=== PATIENT | male | born 1980 | race Caucasian/White ===

== ENCOUNTER 2016-09-20 20:13 | Emergency (ER) | payer MEDICARE ==
[2016-09-20 20:18] VITALS: BP 174/87
--- NOTE | 2016-09-20 21:22 | ED ---
Lower Extremity - HPI Summary HPI Summary: 35M presents with left ankle infection. He is DM1 with sugars between 150-350. He has had the infection for 3 days and was placed on Augmentin and said that the infection has spread. He states he had an abrasion on his left ankle and got infected. He denies any fevers. He has neuropathy in his foot. He denies any drainage from the area. He denies any loss of range of motion of ankle. - History of Current Complaint Chief Complaint: EDExtremityLower Stated Complaint: WORSENING INFECTION Time Seen by Provider: 09/20/16 20:58 Pain Intensity: 6 - Allergies/Home Medications Allergies/Adverse Reactions: Allergies Allergy/AdvReac Type Severity Reaction Status Date / Time Metoclopramide [From Reglan] Allergy Unknown Dystonic Verified 09/20/16 20:23 Prochlorperazine AdvReac Severe Dystonic; Verified 09/20/16 20:23 [From Compazine] Lock Jaw PMH/Surg Hx/FS Hx/Imm Hx Endocrine/Hematology History: Reports: Hx Diabetes, Other Endocrine/ Hematological Disorders - scleroderma Denies: Hx Anticoagulant Therapy, Hx Thyroid Disease Cardiovascular History: Denies: Hx Congestive Heart Failure, Hx Hypertension, Hx Pacemaker/ICD, Other Cardiovascular Problems/Disorders Respiratory History: Denies: Hx Asthma, Hx Chronic Obstructive Pulmonary Disease (COPD) GI History: Reports: Hx Gastroesophageal Reflux Disease, Other GI Disorders - Multiple bouts with gastroparesis Denies: Hx Ulcer History: Reports: Hx Kidney Stones, Other Problems/Disorders - RENAL STONES Denies: Hx Renal Disease Musculoskeletal History: Reports: Hx Arthritis - JRA, Hx Rheumatoid Arthritis, Hx Orthopedic Injury - right femur, right elbow, left clavicle fx's, Other Musculoskeletal History - Left Foot Osteomyletis Sensory History: Reports: Hx Eye Injury - MACULAR ISCHEMIA, MACULAR EDEMA, PROLIFERATIVE RETINOPATHY, Hx Macular Degeneration Denies: Hx Cataracts, Hx Contacts or Glasses, Hx Glaucoma, Hx Legally Blind, Hx Vision Problem, Hx Deafness, Hx Hearing Aid, Hx Hearing Problem, Other Sensory Impairments Opthamlomology History: Reports: Hx Eye Injury - MACULAR ISCHEMIA, MACULAR EDEMA , PROLIFERATIVE RETINOPATHY, Hx Macular Degeneration Denies: Hx Cataracts, Hx Contacts or Glasses, Hx Glaucoma, Hx Legally Blind, Hx Vision Problem, Other Sensory Impairments Neurological History: Reports: Other Neuro Impairments/Disorders - Neuropathy, and dystonia Denies: Hx Dementia, Hx Seizures Psychiatric History: Reports: Hx Anxiety, Hx Post Traumatic Stress Disorder Denies: Hx Panic Disorder, Hx Substance Abuse - Cancer History Cancer Type, 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 2013 r leg reaming,LASER EYE SURGERIES Hx Anesthesia Reactions: No - Immunization History Date of Tetanus Vaccine: unk Date of Influenza Vaccine: utd Infectious Disease History: No Infectious Disease History: Denies: Hx Clostridium Difficile, Hx Hepatitis, Hx Human Immunodeficiency Virus (HIV), Hx Shingles, Hx Tuberculosis, Traveled Outside the [place] in Last 30 Days - Family History Known Family History: Positive: Hypertension - Social History Alcohol Use: None Hx Substance Use: No Substance Use Type: Reports: None, Marijuana Substance Use Comment - Amount & Last Used: occasionally Hx Tobacco Use: No Smoking Status (MU): Never Smoked Tobacco Review of Systems Negative: Fever Negative: Chest Pain Negative: Shortness Of Breath Negative: Decreased ROM Positive: Rash - left ankle All Other Systems Reviewed And Are Negative: Yes Physical Exam Triage Information Reviewed: Yes Vital Signs On Initial Exam: Initial Vitals Temp Pulse Resp BP Pulse Ox 97.2 F 105 16 174/87 99 09/20/16 20:15 09/20/16 20:15 09/20/16 20:15 09/20/16 20:15 09/20/16 20:15 Vital Signs Reviewed: Yes Appearance: Positive: Well-Appearing Skin: Positive: Other - 8cm by 6cm cellulitis present near medial malleolous of left foot that is warm to touch Head/Face: Positive: Normal Head/Face Inspection Eyes: Positive: Normal, Conjunctiva Clear Respiratory/Lung Sounds: Positive: Clear to Auscultation, Breath Sounds Present Cardiovascular: Positive: Normal, RRR Musculoskeletal: Positive: Strength/ROM Intact - of left foot, Other - good pulses, decreased sensation present in left foot at baseline - Kye Coma Scale Coma Scale Total: 15 Diagnostics - Vital Signs Vital Signs Temp Pulse Resp BP Pulse Ox 09/20/16 20:15 97.2 F 105 16 174/87 99 - Laboratory Result Diagrams: 09/20/16 21:18 09/20/16 21:18 Lab Statement: Any lab studies that have been ordered have been reviewed, and results considered in the medical decision making process. - Radiology foot Xray Interpretation: No Acute Changes - IMPRESSION: No fractures identified. Postoperative changes head of the metatarsal. Radiology Interpretation Completed By: Radiologist Lower Extremity Course/Dx - Course Course Of Treatment: 35M presents with worsening cellulitis of left ankle for 3 days. started as abrasion that got infected. was placed on augmentin but infection continued to spread. denies any fever. normal wbc but lactic 2.7 so gave fluid as likely dehydrated due to low Na and Cl. is not currently in DKA but blood sugar 350 told need to use sliding scale. infection appears superficial as has full ROM of ankle and xray normal. spoke with dr cyr and will give dose of zosyn here and d/c with bactrim to add to augmentin told to follow up with primary and may need to see wound clinic. patient understands and agrees with plan - Diagnoses Differential Diagnosis/HQI/PQRI: Positive: Cellulitis, Infection - joint, Osteomyelitis Provider Diagnoses: Cellulitis of left ankle Discharge - Discharge Plan Condition: Guarded Disposition: HOME Prescriptions: Sulfamethox/Trimethoprim DS* [Bactrim DS 800/160 TAB*] 1 tab PO BID #20 tab Patient Education Materials: Cellulitis (ED) Referrals: Wolf John MD [Primary Care Provider] - Additional Instructions: Continue augmentin and add on bactrim twice a day for 10 days Follow up with primary on Friday Use sliding scale for blood sugars Return to ED if BS>500, fever, or any new or worsening symptoms
[2016-09-20 21:26] LABS: Hematocrit 41 % (42-52); Hemoglobin 13.4 g/dl (14.0-18.0); Mean Corpuscular HGB Conc 33 g/dl (31-36); Mean Corpuscular Hemoglobin 26 pg (27-31); Mean Corpuscular Volume 80 fL (80-94); Mean Platelet Volume 8 um3 (7.4-10.4); Red Blood Count 5.16 10^6/ul (4.0-5.4); Red Cell Distribution Width 13 % (10.5-15); White Blood Count 5.6 10^3/ul (3.5-10.8)
[2016-09-20 21:41] LABS: Calcium 9.3 mg/dL (8.6-10.3); EGFR African American 152.4 (>60); EGFR Non-African American 118.5 (>60); Globulin 2.9 g/dL (2-4); Potassium 3.7 mmol/L (3.5-5.0); Total Bilirubin 0.4 mg/dL (0.2-1.0); Total Protein 6.9 g/dL (6.4-8.9)
[2016-09-20] MEDS ORDERED: NS 0.9% 1000 ML* 2,000 ML IV ONE (21:55)
[2016-09-20] MEDS ORDERED: Piperac/Tazob 3.375 gm in NS* 3.375 GM/100 ML BAG IVPB ONE (22:01)
--- NOTE | 2016-09-20 22:10 | RAD ---
Indication: Foot infection. 3 views of the left foot demonstrates destruction of the head of the fifth metatarsal. No definite fractures identified. When compared to previous exam of October 08, 2011 there has been remodeling noted. IMPRESSION: No fractures identified. Postoperative changes head of the metatarsal.
== END 2016-09-20 23:47 | disposition home or self-care (01) ==
LOC: ED 20:13
DX: L03.116 Cellulitis of left lower limb (principal); R21 Rash and other nonspecific skin eruption
CPT/HCPCS: 36415; 80053; 83605; 85025; 86703; 96360; 99282; J2543

== ENCOUNTER 2017-06-17 17:29 | Emergency (ER) | payer MEDICARE ==
[2017-06-17] MEDS ORDERED: NS 0.9% 1000 ML* 1,000 ML IV ONE (20:06)
[2017-06-17] MEDS ORDERED: Ketorolac INJ* 30 MG/ML 1 ML VIAL IV PUSH ONE (20:08)
[2017-06-17 20:13] LABS: Urine Appearance Cloudy; Urine Blood 3+ (Negative); Urine Color Yellow; Urine Ketones 1+ (Negative); Urine Protein 2+(100 mg/dL) (Negative); Urine Specific Gravity 1.031 (1.010-1.030); Urine Urobilinogen Negative (Negative)
--- NOTE | 2017-06-17 20:34 | RAD ---
INDICATION: Gross hematuria. COMPARISON: January 07, 2014 CT. TECHNIQUE: Multidetector CT images were obtained from the lung bases to the ischial tuberosities. Evaluation of the viscera is limited without IV contrast. Multiplanar reformation. REPORT: Unremarkable visualized inferior thorax. The unenhanced liver, gallbladder, pancreas, and spleen are unremarkable. Negative for CT abnormality of the upper GI or small bowel. Variant prominent retrocecal appendix without suggestion of acute inflammatory change. Negative for ascites, free air, hernias. Normal adrenal glands. Severe RIGHT hydroureteronephrosis is traced to a 0.9 cm maximum dimension proximal ureteral stone. 0.8 cm RIGHT lower pole calyceal stone. 0.7 cm LEFT upper pole calyceal stone. Negative for LEFT hydronephrosis. Unremarkable partially distended urinary bladder. Negative for lymphadenopathy. Normal diameter abdominal aorta and iliac arteries. Physiologic distention of the IVC. LEFT femur IM earl partially visualized. Variant RIGHT hemisacralization of L5. Negative for suspicious focal osseous lesions. IMPRESSION: Severe RIGHT hydroureteronephrosis is traced to a 0.9 cm maximum dimension proximal ureteral stone. Additional similar nonobstructing bilateral renal stones.
[2017-06-17 20:46] LABS: ABS Basophils 0.1 10^3/ul (0-0.2); ABS Eosinophils 0.1 10^3/ul (0-0.6); ABS Lymphocytes 1.7 10^3/ul (1.0-4.8); ABS Monocytes 0.4 10^3/ul (0-0.8); ABS Neutrophils 4.2 10^3/ul (1.5-7.7); ABS Nucleated RBC 0 10^3/ul; Hematocrit 43 % (42-52); Hemoglobin 14.1 g/dl (14.0-18.0); Lymphocyte % 26.5 % (25-47); Mean Corpuscular HGB Conc 33 g/dl (31-36); Mean Corpuscular Hemoglobin 26 pg (27-31); Mean Corpuscular Volume 79 fL (80-94); Mean Platelet Volume 9 um3 (7.4-10.4); Nucleated Red Blood Cells % 0; Platelet Count 277 10^3/ul (150-450); Red Blood Count 5.38 10^6/ul (4.0-5.4); Red Cell Distribution Width 13 % (10.5-15); White Blood Count 6.5 10^3/ul (3.5-10.8)
[2017-06-17] MEDS ORDERED: Ketorolac INJ* 60 MG/2 ML VIAL ONE (20:49)
[2017-06-17] MEDS ORDERED: Ketorolac INJ* 60 MG/2 ML VIAL IV PUSH ONE ×2 (20:53)
[2017-06-17 21:00] LABS: EGFR Non-African American 90.8 (>60)
[2017-06-17 21:04] LABS: INR 0.83 (0.77-1.02)
[2017-06-17] MEDS ORDERED: Levofloxacin TAB* 500 MG PO ONE (21:11)
--- NOTE | 2017-06-17 21:26 | ED ---
Clay Maldonado Gabriel, scribzoe for Rodolfo Miguel MD on 06/17/17 at 2007 . GI/ HPI - HPI Summary HPI Summary: This patient is a 36 year old M presenting to [facility] with a chief complaint of hematuria since 06/08/17. The patient rates the pain 8/10 in severity. Patient reports flank back (1 day) and epigastrium pain. - History of Current Complaint Chief Complaint: EDUrogenitalProblems Time Seen by Provider: 06/17/17 19:48 Stated Complaint: URINATING BLOOD Hx Obtained From: Patient Onset/Duration: Started Weeks Ago, Still Present Timing: Constant, Intermittent Severity: Mild Current Severity: Moderate Pain Intensity: 8 Location of Pain: Epigastric Associated Signs and Symptoms: Positive: Hematuria, Other: - flank and epigastric pain - Additional Pertinent History Primary Care Physician: [id number] - Allergy/Home Medications Allergies/Adverse Reactions: Allergies Allergy/AdvReac Type Severity Reaction Status Date / Time Metoclopramide [From Reglan] Allergy Unknown Dystonic Verified 09/20/16 20:23 Prochlorperazine AdvReac Severe Dystonic; Verified 09/20/16 20:23 [From Compazine] Lock Jaw PMH/Surg Hx/FS Hx/Imm Hx Endocrine/Hematology History: Reports: Hx Diabetes, Other Endocrine/ Hematological Disorders - scleroderma Denies: Hx Anticoagulant Therapy, Hx Thyroid Disease Cardiovascular History: Denies: Hx Congestive Heart Failure, Hx Hypertension, Hx Pacemaker/ICD, Other Cardiovascular Problems/Disorders Respiratory History: Denies: Hx Asthma, Hx Chronic Obstructive Pulmonary Disease (COPD) GI History: Reports: Hx Gastroesophageal Reflux Disease, Other GI Disorders - Multiple bouts with gastroparesis Denies: Hx Ulcer History: Reports: Hx Kidney Stones, Other Problems/Disorders - RENAL STONES Denies: Hx Renal Disease Musculoskeletal History: Reports: Hx Arthritis - JRA, Hx Rheumatoid Arthritis, Hx Orthopedic Injury - right femur, right elbow, left clavicle fx's, Other Musculoskeletal History - Left Foot Osteomyletis Sensory History: Reports: Hx Eye Injury - MACULAR ISCHEMIA, MACULAR EDEMA, PROLIFERATIVE RETINOPATHY, Hx Macular Degeneration Denies: Hx Cataracts, Hx Contacts or Glasses, Hx Glaucoma, Hx Legally Blind, Hx Vision Problem, Hx Deafness, Hx Hearing Aid, Hx Hearing Problem, Other Sensory Impairments Opthamlomology History: Reports: Hx Eye Injury - MACULAR ISCHEMIA, MACULAR EDEMA , PROLIFERATIVE RETINOPATHY, Hx Macular Degeneration Denies: Hx Cataracts, Hx Contacts or Glasses, Hx Glaucoma, Hx Legally Blind, Hx Vision Problem, Other Sensory Impairments Neurological History: Reports: Other Neuro Impairments/Disorders - Neuropathy, and dystonia Denies: Hx Dementia, Hx Seizures Psychiatric History: Reports: Hx Anxiety, Hx Post Traumatic Stress Disorder Denies: Hx Panic Disorder, Hx Substance Abuse - Cancer History Cancer Type, 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 2013 r leg reaming,LASER EYE SURGERIES Hx Anesthesia Reactions: No - Immunization History Date of Tetanus Vaccine: unk Date of Influenza Vaccine: utd Infectious Disease History: No Infectious Disease History: Denies: Hx Clostridium Difficile, Hx Hepatitis, Hx Human Immunodeficiency Virus (HIV), Hx Shingles, Hx Tuberculosis, Traveled Outside the [place] in Last 30 Days - Family History Known Family History: Positive: Hypertension, Diabetes - Social History Alcohol Use: None Hx Substance Use: No Substance Use Type: Reports: Marijuana Substance Use Comment - Amount & Last Used: occasionally Hx Tobacco Use: No Smoking Status (MU): Never Smoked Tobacco Review of Systems Positive: Abdominal Pain Positive: hematuria Positive: Other - flank pain All Other Systems Reviewed And Are Negative: Yes Physical Exam - Summary Physical Exam Summary: VITAL SIGNS: Reviewed. GENERAL: Patient is a well-developed and nourished male who is lying comfortable in the stretcher. Patient is not in any acute respiratory distress. HEAD AND FACE: No signs of trauma. No ecchymosis, hematomas or skull depressions. No sinus tenderness. EYES: PERRLA, EOMI x 2, No injected conjunctiva, no nystagmus. EARS: Hearing grossly intact. Ear canals and tympanic membranes are within normal limits. MOUTH: Oropharynx within normal limits. NECK: Supple, trachea is midline, no adenopathy, no JVD, no carotid bruit, no c- spine tenderness, neck with full ROM. CHEST: Symmetric, no tenderness at palpation LUNGS: Clear to auscultation bilaterally. No wheezing or crackles. CVS: Regular rate and rhythm, S1 and S2 present, no murmurs or gallops appreciated. ABDOMEN: Soft, non-tender. No signs of distention. No rebound no guarding, and no masses palpated. Bowel sounds are normal. EXTREMITIES: FROM in all major joints, no edema, no cyanosis or clubbing. NEURO: Alert and oriented x 3. No acute neurological deficits. Speech is normal and follows commands. SKIN: Dry and warm Triage Information Reviewed: Yes Vital Signs On Initial Exam: Initial Vitals Temp Pulse Resp BP Pulse Ox 98.4 F 124 20 163/88 97 06/17/17 17:31 06/17/17 17:31 06/17/17 17:31 06/17/17 17:31 06/17/17 17:31 Vital Signs Reviewed: Yes - [place] Coma Scale Coma Scale Total: 15 Diagnostics - Vital Signs Vital Signs Temp Pulse Resp BP Pulse Ox 06/17/17 17:31 98.4 F 124 20 163/88 97 - Laboratory Lab Results: Lab Results 06/17/17 06/17/17 06/17/17 Range/Units 19:55 20:30 20:30 WBC (3.5-10.8) 10^3/ul RBC (4.0-5.4) 10^6/ul Hgb (14.0-18.0) g/dl Hct (42-52) % MCV (80-94) fL MCH (27-31) pg MCHC (31-36) g/dl RDW (10.5-15) % Plt Count (150-450) 10^3/ul MPV (7.4-10.4) um3 Neut % (Auto) (38-83) % Lymph % (Auto) (25-47) % Towns % (Auto) (1-9) % Eos % (Auto) (0-6) % Baso % (Auto) (0-2) % Absolute Neuts (auto) (1.5-7.7) 10^3/ul Absolute Lymphs (auto) (1.0-4.8) 10^3/ul Absolute Monos (auto) (0-0.8) 10^3/ul Absolute Eos (auto) (0-0.6) 10^3/ul Absolute Basos (auto) (0-0.2) 10^3/ul Absolute Nucleated RBC 10^3/ul Nucleated RBC % INR (Anticoag Therapy) 0.83 (0.77-1.02) APTT 28.4 (26.0-36.3) seconds Sodium 131 L (133-145) mmol/L Potassium 4.2 (3.5-5.0) mmol/L Chloride 96 L (101-111) mmol/L Carbon Dioxide 27 (22-32) mmol/L Anion Gap 8 (2-11) mmol/L BUN 17 (6-24) mg/dL Creatinine 0.94 (0.67-1.17) mg/dL Est GFR ( Amer) 116.8 (>60) Est GFR (Non-Af Amer) 90.8 (>60) BUN/Creatinine Ratio 18.1 (8-20) Glucose 379 H (70-100) mg/dL Calcium 9.1 (8.6-10.3) mg/dL Total Bilirubin 0.70 (0.2-1.0) mg/dL AST 16 (13-39) U/L ALT 18 (7-52) U/L Alkaline Phosphatase 109 H (34-104) U/L C-Reactive Protein 6.78 H (< 5.00) mg/L Total Protein 7.1 (6.4-8.9) g/dL Albumin 4.1 (3.2-5.2) g/dL Globulin 3.0 (2-4) g/dL Albumin/Globulin Ratio 1.4 (1-3) Urine Color Yellow Urine Appearance Cloudy Urine pH 6.0 (5-9) Ur Specific [place] 1.031 H (1.010-1.030) Urine Protein 2+(100 mg/dl) H (Negative) Urine Ketones 1+ H (Negative) Urine Blood 3+ H (Negative) Urine Nitrate Negative (Negative) Urine Bilirubin Negative (Negative) Urine Urobilinogen Negative (Negative) Ur Leukocyte Esterase Negative (Negative) Urine WBC (Auto) 3+(>20/hpf) H (Absent) Urine RBC (Auto) 3+(>10/hpf) H (Absent) Urine Bacteria Absent (Absent) Urine Glucose 3+(>=500 mg/dl) H (Negative) 06/17/17 Range/Units 20:30 WBC 6.5 (3.5-10.8) 10^3/ul RBC 5.38 (4.0-5.4) 10^6/ul Hgb 14.1 (14.0-18.0) g/dl Hct 43 (42-52) % MCV 79 L (80-94) fL MCH 26 L (27-31) pg MCHC 33 (31-36) g/dl RDW 13 (10.5-15) % Plt Count 277 (150-450) 10^3/ul MPV 9 (7.4-10.4) um3 Neut % (Auto) 64.6 (38-83) % Lymph % (Auto) 26.5 (25-47) % Towns % (Auto) 5.8 (1-9) % Eos % (Auto) 2.0 (0-6) % Baso % (Auto) 1.1 (0-2) % Absolute Neuts (auto) 4.2 (1.5-7.7) 10^3/ul Absolute Lymphs (auto) 1.7 (1.0-4.8) 10^3/ul Absolute Monos (auto) 0.4 (0-0.8) 10^3/ul Absolute Eos (auto) 0.1 (0-0.6) 10^3/ul Absolute Basos (auto) 0.1 (0-0.2) 10^3/ul Absolute Nucleated RBC 0 10^3/ul Nucleated RBC % 0 INR (Anticoag Therapy) (0.77-1.02) APTT (26.0-36.3) seconds Sodium (133-145) mmol/L Potassium (3.5-5.0) mmol/L Chloride (101-111) mmol/L Carbon Dioxide (22-32) mmol/L Anion Gap (2-11) mmol/L BUN (6-24) mg/dL Creatinine (0.67-1.17) mg/dL Est GFR ( Amer) (>60) Est GFR (Non-Af Amer) (>60) BUN/Creatinine Ratio (8-20) Glucose (70-100) mg/dL Calcium (8.6-10.3) mg/dL Total Bilirubin (0.2-1.0) mg/dL AST (13-39) U/L ALT (7-52) U/L Alkaline Phosphatase (34-104) U/L C-Reactive Protein (< 5.00) mg/L Total Protein (6.4-8.9) g/dL Albumin (3.2-5.2) g/dL Globulin (2-4) g/dL Albumin/Globulin Ratio (1-3) Urine Color Urine Appearance Urine pH (5-9) Ur Specific [place] (1.010-1.030) Urine Protein (Negative) Urine Ketones (Negative) Urine Blood (Negative) Urine Nitrate (Negative) Urine Bilirubin (Negative) Urine Urobilinogen (Negative) Ur Leukocyte Esterase (Negative) Urine WBC (Auto) (Absent) Urine RBC (Auto) (Absent) Urine Bacteria (Absent) Urine Glucose (Negative) Result Diagrams: 06/17/17 20:30 06/17/17 20:30 Lab Statement: Any lab studies that have been ordered have been reviewed, and results considered in the medical decision making process. - CT CT ABD/Pelvis CT Interpretation Completed By: Radiologist - Severe RIGHT hydroureteronephrosis is traced to a 0.9 cm maximum dimension proximal ureteral stone. Additional similar nonobstructing bilateral renal stones ED physician has reviewed this radiology report. Re-Evaluation - Re-Evaluation First Eval Re-Evaluation Time: 21:24 Change: Unchanged - Patients blood sugar is high he is IDDM He usually uses sliding scale and he states he will take care of it when he gets home. GIGU Course/Dx - Course Assessment/Plan: This patient is a 36 year old M presenting to [facility] with a chief complaint of hematuria since 06/08/17. The patient rates the pain 8/10 in severity. Patient reports flank back (1 day) and epigastric pain. . ABD/ Pelvis CT, reveals, per radiloigst, Severe RIGHT hydroureteronephrosis is traced to a 0.9 cm maximum dimension. proximal ureteral stone. Additional similar nonobstructing bilateral renal stones. . Test results with no significant abnormalities. In the ED course the patient was given Toradol, IV fluids, and Levaquin. Patient will be discharged with prescription for Levaquin , Percocet, and tamsulosin and follow up from urology tomorrow. The patient is agreeable with this plan. - Diagnoses Provider Diagnoses: Ureteral calculus, right Discharge - Discharge Plan Condition: Stable Disposition: HOME Prescriptions: Levofloxacin TAB* [Levaquin TAB*] 500 mg PO DAILY #7 tab oxyCODONE/Acetamin 5/325 MG* [Percocet 5/325 TAB*] 1 tab PO Q6H PRN #14 tab MDD 4 PRN Reason: Pain Tamsulosin CAP* [Flomax CAP*] 0.4 mg PO DAILY #7 cap Patient Education Materials: Kidney Stones (ED) Referrals: Wolf John MD [Primary Care Provider] - Gianluca Coffey MD [Medical Doctor] - 1 Day Additional Instructions: Follow up with Dr. Coffey tomorrow. RETURN TO EMERGENCY DEPARTMENT FOR ANY NEW OR WORSENING SYMPTOMS The documentation as recorded by the Clay roblero Gabriel accurately reflects the service I personally performed and the decisions made by , Rodolfo Miguel MD.
[2017-06-17 21:42] VITALS: BP 134/90
== END 2017-06-17 21:41 | disposition home or self-care (01) ==
LOC: ED 17:29
DX: N20.1 Calculus of ureter (principal); R31.9 Hematuria, unspecified; R10.84 Generalized abdominal pain
CPT/HCPCS: 36415; 74176; 80053; 81003; 81015; 85025; 85610; 85730; 86140; 96374; 96375; 99283; J1885

== ENCOUNTER 2017-06-20 06:58 | Day surgery (SDC) | payer MEDICARE ==
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
[~2017-06-20 06:58] MED LIST: Buffered Lidocaine 0.9% SYRIN* 5 ML/SYR SYRINGE INTRADERM ONE; Famotidine IV* 10 MG/ML 2 ML (20 mg) IV ONE
[2017-06-20] MEDS ORDERED: Gentamicin ADULT (*) 160 MG in NS 0.9% 100 ML* 100 ML IVPB ONE (07:00)
[2017-06-20] MEDS ORDERED: Famotidine IV* 10 MG/ML 2 ML (20 mg) ONE (07:08)
[2017-06-20] MEDS ORDERED: Buffered Lidocaine 0.9% SYRIN* 5 ML/SYR SYRINGE ONE (07:09)
[2017-06-20] MEDS ORDERED: cefTRIAXone(*) 2 GM ADDV.VIAL IVPB ONE ×2 (07:09→07:34)
[2017-06-20] MEDS ORDERED: fentaNYL* 50 MCG/ML 2 ML VIAL (100 MCG VIAL) ONE (08:27)
[2017-06-20] MEDS ORDERED: Midazolam* 1 MG/ML 2 ML VIAL (2 MG) ONE (08:27)
[2017-06-20] MEDS ORDERED: fentaNYL* 50 MCG/ML 2 ML VIAL (100 MCG VIAL) IV PRN (08:44)
[2017-06-20] MEDS ORDERED: Ketorolac INJ* 30 MG/ML 1 ML VIAL IV PRN (08:44)
[2017-06-20] MEDS ORDERED: oxyCODONE/Acetamin 5/325 MG* TAB PO PRN (08:44)
[2017-06-20] MEDS ORDERED: Naloxone* 0.4 MG/ML 1 ML VIAL IV PRN (08:44)
[2017-06-20] MEDS ORDERED: DiMENhydriNATE IV* 50 MG/ML VIAL IV PUSH PRN (08:44)
[2017-06-20] MEDS ORDERED: HYDROcodone/ACETAMIN 5-325 MG* 1 TAB PO PRN (08:44)
[2017-06-20] MEDS ORDERED: Mivacurium Chloride* 20 MG/10 ML VIAL IV ONE (08:54)
[2017-06-20] MEDS ORDERED: Lidocaine 2% PF * 5 ML VIAL ONE (08:54)
[2017-06-20] MEDS ORDERED: Propofol* 10 MG/ML 20 ML BTL IV PUSH ONE (08:54)
[2017-06-20] MEDS ORDERED: Iohexol 180 (CONTRAST) 10 ML SDV IV ONE (08:58)
[2017-06-20] MEDS ORDERED: Dextrose 50% Syringe 50 ML* 25 GM/50 ML SYRINGE ONE (09:04)
[2017-06-20] MEDS ORDERED: Ondansetron INJ* 2 MG/ML VIAL ONE (09:16)
--- NOTE | 2017-06-20 10:20 | RAD ---
INDICATION: Ureteral stent insertion COMPARISONS: CT dated June 17, 2017 TECHNIQUE: Fluoroscopy was provided for a retrograde pyelogram and stent placement. Total fluoroscopy time is: 7 seconds FINDINGS: Spot images demonstrate contrast within the renal collecting system which appears partially duplicated. IMPRESSION: FLUOROSCOPY WAS PROVIDED FOR A RETROGRADE PYELOGRAM AND STENT PLACEMENT CPT II Codes: 6045F
[2017-06-20 10:48] VITALS: BP 118/69
--- NOTE | 2017-06-20 11:15 | RAD ---
HISTORY: Stent, status post cystoscopy COMPARISONS: June 19, 2012 VIEWS: Frontal views of the abdomen. FINDINGS: BOWEL: There is a nonobstructive bowel gas pattern. There is a large amount of stool within the colon. CALCULI: A right ureteral stent is noted. There is stable bilateral nephrolithiasis including a right midureteral calculus. BONES AND SOFT TISSUES: There are no osseous abnormalities. OTHER FINDINGS: The lung bases are clear. There is no subphrenic gas. IMPRESSION: RIGHT RENAL STENT. BILATERAL NEPHROLITHIASIS.
--- NOTE | 2017-06-21 05:38 | OP ---
DATE OF OPERATION: 06/20/17 - ROOM #[id number] DATE OF : 80 SURGEON: Cristobal Sanford MD ANESTHESIOLOGIST: Dr. Mireya Hinojosa. ANESTHESIA: General. PRE-OP DIAGNOSES: 1. Right hydronephrosis. 2. Right renal calculus. 3. Right ureteral calculus. POST-OP DIAGNOSES: 1. Right hydronephrosis. 2. Right renal calculus. 3. Right ureteral calculus. OPERATIVE PROCEDURE: 1. Cystoscopy. 2. Right retrograde pyelogram. 3. Right stent insertion. COMPLICATIONS: None. STENT USED: 7-Vietnamese stent right ureter. POSTOPERATIVE CONDITION: Stable. INDICATIONS: Jabier Dickerson is a 36-year-old diabetic with a history of renal calculi. He was evaluated for severe hydronephrosis secondary to a calculus in the right proximal ureter with additional bilateral renal calculi. He is being brought in for urgent right stent insertion to be followed by lithotripsy. DESCRIPTION OF PROCEDURE: After induction of general anesthesia, the patient was placed in dorsal lithotomy position. Sequential compression devices were in place and functioning. Initial cystoscopy revealed a mild stricture at the urethral meatus. Rest of the urethra and the bladder were unremarkable. A guidewire was introduced into the right ureter. Retrograde pyelogram revealed a dilated proximal collecting system. A 7-Vietnamese stent was introduced and positioned under fluoroscopy with good proximal and distal positioning obtained. The bladder was emptied. The patient tolerated the procedure satisfactorily and was transferred back to the recovery area in stable condition. [id number]/[facility] #: [id number] MTDD
== END 2017-06-20 10:57 | disposition home or self-care (01) ==
LOC: OR 06:58 → AA 07:10 → UNDOADMIN 07:10
PROVIDERS: ATTEND Urology
DX: N13.2 Hydronephrosis with renal and ureteral calculous obstruction (principal); E10.9 Type 1 diabetes mellitus without complications; Z79.4 Long term (current) use of insulin; M34.9 Systemic sclerosis, unspecified; K31.84 Gastroparesis
CPT/HCPCS: 74018; 74420; C1876; J0696; J1580; J2250; J2405; J2704; J3010

== ENCOUNTER 2017-06-30 12:25 | Day surgery (SDC) | payer MEDICARE ==
[2017-06-30] MEDS ORDERED: Midazolam* 1 MG/ML 2 ML VIAL (2 MG) ONE (12:37)
[2017-06-30] MEDS ORDERED: fentaNYL* 50 MCG/ML 2 ML VIAL (100 MCG VIAL) ONE (12:37)
[2017-06-30] MEDS ORDERED: Ondansetron INJ* 2 MG/ML VIAL ONE (12:56)
[2017-06-30] MEDS ORDERED: Dexamethasone IV* 4 MG/ML 1 ML (4 MG) ONE (12:56)
[2017-06-30] MEDS ORDERED: Succinylcholine* 20 MG/ML 10 ML VIAL ONE (12:56)
[2017-06-30] MEDS ORDERED: Ketorolac INJ* 30 MG/ML 1 ML VIAL ONE (12:56)
[2017-06-30] MEDS ORDERED: Propofol* 10 MG/ML 20 ML BTL IV PUSH ONE ×2 (12:56→14:39)
[2017-06-30] MEDS ORDERED: Lidocaine 2% PF * 5 ML VIAL ONE (12:56)
[2017-06-30] MEDS ORDERED: Acetaminophen TAB* 325 MG PO PRN (13:14)
[2017-06-30] MEDS ORDERED: DiMENhydriNATE IV* 50 MG/ML VIAL IV PUSH PRN (13:14)
[2017-06-30] MEDS ORDERED: Naloxone* 0.4 MG/ML 1 ML VIAL IV PRN (13:14)
[2017-06-30] MEDS ORDERED: oxyCODONE TAB* 5 MG TAB PO PRN (13:14)
--- NOTE | 2017-06-30 13:57 | RAD ---
HISTORY: Shock wave lithotripsy COMPARISONS: June 20, 2017 VIEWS: Frontal views of the abdomen. FINDINGS: BOWEL: There is a nonspecific bowel gas pattern, with nondilated small bowel gas noted. There is a large amount of stool within the colon. CALCULI: There is a right ureteral stent. Again noted is a calculus overlying the right ureter measuring 0.8 cm. There is a 0.7 cm focus of lower pole of the right kidney. These are stable. BONES AND SOFT TISSUES: The patient is status post internal fixation of the right femur. There is partial sacralization of L5 with pseudoarthrosis formation on the right OTHER FINDINGS: The lung bases are clear. There is no subphrenic gas. IMPRESSION: RIGHT NEPHROLITHIASIS WITH A RIGHT URETERAL STENT
[2017-06-30 16:15] VITALS: BP 141/93
--- NOTE | 2017-06-30 17:20 | RAD ---
INDICATION: The patient is status post lithotripsy of the right kidney COMPARISON: Same day KUB acquired at 1244 hours. TECHNIQUE: 2 views the abdomen were obtained at 1654 hours FINDINGS: Again seen is an anatomically aligned right ureteral stent. At the mid-level ureter there is an 8 mm calcification approximately at the L3/L4 intervertebral disc space unchanged from the earlier radiograph. Again seen is a medullary prosthesis with 1 fractures screw overlying the lesser trochanter. IMPRESSION: ANATOMIC ALIGNMENT OF RIGHT URETERAL STENT WITH UNCHANGED 8 MM CALCIFICATION AT THE MID-LEVEL URETER.
--- NOTE | 2017-07-01 12:17 | OP ---
CC: Dr. John * DATE OF OPERATION: 06/30/17 - SDS DATE OF : 80 SURGEON: Cristobal Sanford MD ANESTHESIOLOGIST: Dr. Gaming. ANESTHESIA: General. PRE-OP DIAGNOSES: 1. Calculus, right ureter. 2. Calculus, right kidney. POST-OP DIAGNOSES: 1. Calculus, right ureter. 2. Calculus, right kidney. OPERATIVE PROCEDURE: 1. Shockwave lithotripsy of right ureteral calculus. 2. Shockwave lithotripsy of right renal calculus. COMPLICATIONS: None. POSTOPERATIVE CONDITION: Stable. INDICATIONS: Jabier Dickerson is a 36-year-old diabetic who had undergone urgent stent insertion for an obstructing calculus in the right proximal ureter. At that time, in addition to the obstructing right ureteral calculus, he was also noted to have a right renal calculus. DESCRIPTION OF PROCEDURE: After induction of general anesthesia, the patient was placed on the lithotripsy table in supine position. The calculus in the proximal right ureter adjacent to the stent was first localized using fluoroscopy. Shockwave lithotripsy was commenced at a rate of 90 shocks per minute. Periodic imaging revealed good localization and fragmentation and a total of 2400 shocks were administered to this calculus. Next, the patient was moved to be able to visualize the calculus in the mid to lower pole of the right kidney and this was identified using fluoroscopy. Shockwave lithotripsy was commenced at a rate of 90 shocks per minute, and after the initial 300 shocks, there was a pause in lithotripsy for several minutes in an effort to minimize any potential trauma to the kidney. Lithotripsy was then resumed and a total of 2000 shocks were administered to this calculus and good fragmentation was observed. The patient tolerated the procedure satisfactorily and was transferred back to the recovery area in stable condition. [id number] #: [id number] MTDEdel
== END 2017-06-30 17:06 | disposition home or self-care (01) ==
LOC: IMG 12:25 → OR 12:25 → IMG 17:06
PROVIDERS: ATTEND Urology
DX: N20.1 Calculus of ureter (principal); N20.0 Calculus of kidney; E11.9 Type 2 diabetes mellitus without complications; Z79.4 Long term (current) use of insulin; M34.9 Systemic sclerosis, unspecified
CPT/HCPCS: 74018; J0330; J1100; J1885; J2250; J2405; J2704; J3010

== ENCOUNTER 2017-07-02 17:26 | Emergency (ER) | payer MEDICARE ==
[2017-07-02] MEDS ORDERED: Lidocaine 2% PF * 5 ML VIAL INJ ONE (21:27)
[2017-07-02] MEDS ORDERED: Lidocaine 2% PF * 5 ML VIAL ONE (21:28)
[2017-07-02] MEDS ORDERED: Clindamycin CAP* 150 MG PO ONE (22:12)
[2017-07-02] MEDS ORDERED: Levofloxacin TAB* 500 MG PO ONE (22:13)
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
[2017-07-02 22:41] VITALS: BP 134/84
== END 2017-07-02 22:41 | disposition home or self-care (01) ==
LOC: ED 17:26
DX: L02.611 Cutaneous abscess of right foot (principal)
CPT/HCPCS: 10060; 87070; 87205; 87640; 87641; 99282; A9270-GY

== ENCOUNTER 2017-07-11 16:50 | Emergency (ER) | payer MEDICARE ==
[2017-07-11 16:55] VITALS: BP 160/87
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
== END 2017-07-11 17:41 | disposition home or self-care (01) ==
LOC: ED 16:50
DX: S91.301A Unspecified open wound, right foot, initial encounter (principal); X58.XXXA Exposure to other specified factors, initial encounter; Y92.9 Unspecified place or not applicable; E10.9 Type 1 diabetes mellitus without complications; Z88.8 Allergy status to other drugs, medicaments and biological substances
CPT/HCPCS: 99282

== ENCOUNTER 2018-05-06 10:48 | Inpatient (IN) | payer MEDICARE ==
[2018-05-06] MEDS ORDERED: NS 0.9% 1000 ML* 1,000 ML IV ONE (10:53)
[2018-05-06 11:14] LABS: ABS Basophils 0.1 10^3/ul (0-0.2); ABS Eosinophils 0 10^3/ul (0-0.6); ABS Lymphocytes 0.8 10^3/ul (1.0-4.8); ABS Monocytes 0.4 10^3/ul (0-0.8); ABS Neutrophils 8.8 10^3/ul (1.5-7.7); ABS Nucleated RBC 0 10^3/ul; Eosinophil % 0.1 % (0-6); Hematocrit 46 % (42-52); Hemoglobin 14.8 g/dl (14.0-18.0); Lymphocyte % 7.7 % (25-47); Mean Corpuscular HGB Conc 32 g/dl (31-36); Mean Corpuscular Hemoglobin 26 pg (27-31); Mean Corpuscular Volume 81 fL (80-94); Mean Platelet Volume 8.9 fL (7.4-10.4); Nucleated Red Blood Cells % 0; Platelet Count 290 10^3/ul (150-450); Red Blood Count 5.62 10^6/ul (4.00-5.40); Red Cell Distribution Width 13 % (10.5-15); White Blood Count 10.1 10^3/ul (3.5-10.8)
[2018-05-06] MEDS ORDERED: Insulin IVPB 100 units/100 ml 100 UNITS/100 ML UNIT IVPB ONE (11:21)
[2018-05-06 11:27] LABS: INR 0.88 (0.77-1.02)
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
[2018-05-06 11:36] LABS: EGFR Non-African American 76.1 (>60)
[2018-05-06] MEDS: Ondansetron INJ* 2 MG/ML VIAL IV PRN ×2 (14:23→18:28)
[2018-05-06] MEDS ORDERED: D5NS 0.9% 1000 ML BAG* 1,000 ML IV SCH ×2 (15:00→15:58)
[2018-05-06 15:40] LABS: EGFR Non-African American 96.2 (>60)
[2018-05-06] MEDS: Insulin LISPRO* 1 UNITS UNIT SUBCUT SCH ×2 (16:44→20:39)
[2018-05-06 18:39] LABS: Urine Appearance Clear; Urine Blood 1+ (Negative); Urine Color Yellow; Urine Ketones 2+ (Negative); Urine Protein 2+(100 mg/dL) (Negative); Urine Red Blood Cell Trace(0-2/hpf) (Absent); Urine Specific Gravity 1.023 (1.010-1.030); Urine Urobilinogen Negative (Negative); Urine White Blood Cell Trace(0-5/hpf) (Absent)
--- NOTE | 2018-05-06 20:37 | HP ---
ADMISSION HISTORY AND PHYSICAL: DATE OF ADMISSION: 05/06/18 REASON FOR ADMISSION: Diabetic ketoacidosis. HISTORY OF PRESENT ILLNESS: This patient is a 37-year-old white male with a long- standing history of type 1 diabetes complicated by gastroparesis and neurogenic bladder. Presented to emergency room today because of nausea and vomiting, and was found to have a blood glucose of 527, a bicarb of 15, and an anion gap of 24 - was subsequently given fluids and insulin, and admitted to ICU with Dx of diabetic ketoacidosis. The patient was alert and oriented in the ED, and he denies any symptoms suggestive of an infection, DE, or pancreatitis. He did state that the nausea and vomiting are probly related to the gastroparesis, and when he has difficulty keeping food down, he cuts back his insulin dose. Associated illness: Scleroderma, apparently skin involvement only. OUTPATIENT MEDICATIONS: 1. Lantus insulin 35 units subcu daily. 2. Lispro insulin 2-10 units subQ as needed. 3. Zofran 4 mg sublingual q.4 hours as needed. ALLERGIES TO MEDICATIONS: METOCLOPRAMIDE causes dystonic reactions and PROCHLORPERAZINE, reaction unknown. SOCIAL HISTORY: The patient lives with 4 roommates in a house in [facility]. Denies smoking or alcohol abuse. REVIEW OF SYSTEMS: Noncontributory. PHYSICAL EXAMINATION GENERAL: The patient was alert, oriented and appeared comfortable. VITAL SIGNS: Temperature of 98.4 (temporal), heart rate 112, blood pressure 150 /90, respirations 22 and regular, O2 sat 98% 2 liters of oxygen via nasal cannula. HEENT: Oropharynx was not injected. NECK: Supple without masses or adenopathy. LUNGS: Clear to auscultation. HEART: Cardiac exam revealed a regular tachycardia, and there was a 2/6 early systolic murmur heard throughout the precordium. ABDOMEN: Soft, nontender, and nondistended. EXTREMITIES: Cool and pale, but not edematous. Skin changes were consistent with early scleroderma. DIAGNOSTIC STUDIES/LAB DATA: Admission laboratory data: Hemoglobin was 14.8, hematocrit 46, white count 10.1, platelets 290,000. Sodium 132, potassium 4.4, chloride 93, CO2 of 15, anion gap 24, BUN 22, creatinine 1.09. CPK normal. Troponin 0. C-reactive protein 3, albumin 4.4, alk phos 136. ALT and AST normal. Chest x-ray, clear lung dolan and no cardiomegaly. Electrocardiogram: Sinus tachycardia without acute ST or T-wave changes. IMPRESSION: Diabetic ketoacidosis due to altered insulin dosing (in response to vomiting from gastroparesis). No evidence for infection or myocardial ischemia. PLAN: Management will consist of the usual fluids and intravenous insulin infusion. We will switch to subcutaneous insulin when anion gap has normalized. Management of the gastroparesis has been problematic and we will use Zofran for nausea and vomiting for now. I will consider domperidone 10 to 20 mg 3 times daily before meals (the patient has failed erythromycin and is allergic to METOCLOPRAMIDE). Urine and blood cultures have been sent and results are pending. CRITICAL CARE TIME: 60 minutes. [id number]/[facility] #: [id number] MTDD
[2018-05-06] MEDS: Heparin VIAL(*) 5000 UNITS/ML VIAL (FIVE THOUSAND) SUBCUT SCH (20:39)
[2018-05-06 21:25] LABS: EGFR Non-African American 97.4 (>60)
[2018-05-07 00:47] LABS: EGFR Non-African American 101.4 (>60)
[2018-05-07] MEDS: Insulin LISPRO* 1 UNITS UNIT SUBCUT SCH ×2 (02:31→08:02)
[2018-05-07] MEDS: Ondansetron INJ* 2 MG/ML VIAL IV PRN (02:31)
[2018-05-07] MEDS ORDERED: NS 0.9% 1000 ML* 1,000 ML IV SCH (04:00)
[2018-05-07 04:55] LABS: Hematocrit 37 % (42-52); Hemoglobin 12.3 g/dl (14.0-18.0); Mean Corpuscular HGB Conc 33 g/dl (31-36); Mean Corpuscular Hemoglobin 26 pg (27-31); Mean Corpuscular Volume 80 fL (80-94); Mean Platelet Volume 7.9 fL (7.4-10.4); Platelet Count 257 10^3/ul (150-450); Red Blood Count 4.68 10^6/ul (4.00-5.40); Red Cell Distribution Width 13 % (10.5-15); White Blood Count 8.9 10^3/ul (3.5-10.8)
[2018-05-07 05:12] LABS: EGFR Non-African American 100.1 (>60)
[2018-05-07] MEDS: Heparin VIAL(*) 5000 UNITS/ML VIAL (FIVE THOUSAND) SUBCUT SCH (08:02)
[2018-05-07] MEDS ORDERED: Insulin GLARGINE(*) 1 UNITS UNIT SUBCUT SCH (09:00)
[2018-05-07] MEDS ORDERED: Famotidine TAB* 20 MG PO SCH (09:00)
[2018-05-07 11:14] VITALS: BP 142/83
[2018-05-07 12:16] LABS: EGFR Non-African American 113.7 (>60)
--- NOTE | 2018-05-07 20:51 | DS ---
CC: Dr. John* DISCHARGE SUMMARY: DATE OF ADMISSION: 05/06/18 DATE OF DISCHARGE: 05/07/18 PRIMARY CARE PROVIDER: Dr. John. DISCHARGE DIAGNOSIS: Diabetic ketoacidosis. MEDICATIONS AT DISCHARGE: 1. Zofran 4 mg on a p.r.n. basis. 2. Insulin glargine 34 units subcutaneously daily. 3. Insulin lispro on a sliding scale with each meal. LABORATORY DATA AND STUDIES PERFORMED DURING THE HOSPITAL STAY: Included on ___ __, white blood cell count 8.9, hemoglobin 12.3, hematocrit 37, platelets of 257. Sodium of 133, potassium 4.5, chloride 104, carbon dioxide 20, anion gap of 8, BUN 15, creatinine 0.77, glucose level of 179. HOSPITALIZATION COURSE: Jabier Dickerson is a 37-year-old male with a history of gastroparesis and intermittent vomiting, who presented to the hospital on complaining of nausea and vomiting and was in DKA with sugars in the 500 range. The patient was initially placed on insulin drip in the intensive care unit and with intravenous fluid resuscitation and insulin drip, recovered very quickly. By the time of discharge, his anion gap closed and his sugars had been in the 170 to 200 range. He tolerated full diet without any problems with nausea, vomiting, or abdominal pain. He is going to be discharged home with recommendation to follow up with his primary care provider at approximately 4 to 7 days. His medications at discharge were unchanged from admission. PHYSICAL EXAMINATION: At the time of discharge, blood pressure 142/83, heart rate of 90 and regular, respiratory rate 17, oxygen saturation 100% on room air , temperature 98.3. General: The patient is a pleasant 37-year-old male, who is in no acute distress. Alert, awake, and oriented x3. HEENT: Head: Atraumatic and normocephalic. Eyes: Pupils are equal and reactive to light and accommodation. Oropharynx is clear. Mucosa moist. Neck: Supple. No JVD. No bruit bilaterally. Cardiovascular: Regular rate and rhythm. No murmur. Respiratory: Clear to auscultation bilaterally. Abdomen: Soft, nontender. Bowel sounds are present in all 4 quadrants. Extremities: There is no edema. Pulses +2 bilaterally. No clubbing or cyanosis. On neuro evaluation, speech clear. Cranial nerves II through XII grossly intact. Motor strength is 5/5 bilaterally. Please note this is a short summary of the patient's hospitalization. Please refer to further medical records for details. TIME SPENT: Approximately 40 minutes was spent on the patient's discharge. [id number]/[facility] #: [id number] MTDD
== END 2018-05-07 13:53 | disposition home or self-care (01) | DRG 639 ==
LOC: ED 10:48 → ICU 11:35 → MED 23:45
PROVIDERS: ADMIT Internal Medicine Critical Care Medicine; ATTEND Internal Medicine
DX: E10.10 Type 1 diabetes mellitus with ketoacidosis without coma (principal); E10.43 Type 1 diabetes mellitus with diabetic autonomic (poly)neuropathy; K31.84 Gastroparesis; N31.9 Neuromuscular dysfunction of bladder, unspecified; M34.9 Systemic sclerosis, unspecified; I25.10 Atherosclerotic heart disease of native coronary artery without angina pectoris; E10.51 Type 1 diabetes mellitus with diabetic peripheral angiopathy without gangrene; K21.9 Gastro-esophageal reflux disease without esophagitis; M06.9 Rheumatoid arthritis, unspecified; F41.9 Anxiety disorder, unspecified; F43.10 Post-traumatic stress disorder, unspecified; H35.30 Unspecified macular degeneration; Z87.442 Personal history of urinary calculi; Z82.49 Family history of ischemic heart disease and other diseases of the circulatory system; Z79.4 Long term (current) use of insulin; Z88.8 Allergy status to other drugs, medicaments and biological substances; Z83.3 Family history of diabetes mellitus
CPT/HCPCS: 36415; 71045; 80048; 80053; 80307; 80320; 81003; 81015; 82550; 82803; 83605; 83690; 83735; 84100; 84484; 85025; 85027; 85610; 86140; 87040; 87086; 87641; 93005; 96374; 99285; A9270-GY; G0480; J1644; J1815; J2405

== ENCOUNTER 2018-06-04 09:58 | Emergency (ER) | payer MEDICARE ==
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
[2018-06-04] MEDS ORDERED: NS 0.9% 1000 ML* 1,000 ML IV ONE (10:29)
[2018-06-04 10:50] LABS: Urine Appearance Cloudy; Urine Bacteria Absent (Absent); Urine Bilirubin Negative (Negative); Urine Blood 1+ (Negative); Urine Color Yellow; Urine Glucose 3+(>=500 mg/dL) (Negative); Urine Ketones 1+ (Negative); Urine Nitrite Negative (Negative); Urine Protein 2+(100 mg/dL) (Negative); Urine Red Blood Cell 3+(>10/hpf) (Absent); Urine Specific Gravity 1.029 (1.010-1.030); Urine Urobilinogen Negative (Negative); Urine White Blood Cell 3+(>20/hpf) (Absent)
[2018-06-04 11:12] LABS: ABS Basophils 0 10^3/ul (0-0.2); ABS Eosinophils 0.2 10^3/ul (0-0.6); ABS Lymphocytes 1.5 10^3/ul (1.0-4.8); ABS Monocytes 0.4 10^3/ul (0-0.8); ABS Neutrophils 4.5 10^3/ul (1.5-7.7); ABS Nucleated RBC 0 10^3/ul; Eosinophil % 2.5 %; Hematocrit 40 % (42-52); Hemoglobin 12.9 g/dl (14.0-18.0); Lymphocyte % 22.5 %; Mean Corpuscular HGB Conc 33 g/dl (31-36); Mean Corpuscular Hemoglobin 26 pg (27-31); Mean Corpuscular Volume 81 fL (80-94); Mean Platelet Volume 8.3 fL (7.4-10.4); Nucleated Red Blood Cells % 0.1; Platelet Count 312 10^3/ul (150-450); Red Cell Distribution Width 13 % (10.5-15); White Blood Count 6.6 10^3/ul (3.5-10.8)
[2018-06-04 11:31] LABS: Albumin 3.7 g/dL (3.2-5.2); Albumin/Globulin Ratio 1.4 (1-3); C Reactive Protein 3.35 mg/L (<8.01); Calcium 8.8 mg/dL (8.6-10.3); EGFR Non-African American 108.8 (>60); Globulin 2.6 g/dL (2-4); Potassium 4.5 mmol/L (3.5-5.0); Total Bilirubin 0.7 mg/dL (0.2-1.0); Total Protein 6.3 g/dL (6.4-8.9)
[2018-06-04] MEDS ORDERED: Ciprofloxacin TAB* 500 MG PO ONE (11:45)
[2018-06-04] MEDS ORDERED: Insulin REGULAR(*) 1 UNITS UNIT SUBCUT ONE (11:45)
[2018-06-04 14:01] VITALS: BP 154/99
--- NOTE | 2018-06-06 12:06 | PN ---
Progress Note - Progress Note Date of Service: 06/04/18 Note: Pt. seen in ED 06/04 and started on Cipro for UTI. Final culture today growing staph epidermidis susceptible to cipro no change in treatment needed at this time.
--- NOTE | 2018-06-07 07:44 | ED ---
Progress - Progress Note Progress Note: Patient's final urine culture reveals 50-75,000 Staphylococcus epidermidis. Patient was started on Cipro to which organism is not sensitive. Patient came to the ED with symptoms, + U/A findings, no obstruction on CT and history of type 1 diabetes with a blood glucose in the 400's. Antibiotic needs to be changed. Sensitivities available. Left message to call. Also tried contacting via mother's phone number. Will mail letter. reina Jarrell, carie. Course/Dx - Course Course Of Treatment: Mr. Dickerson presented complaining of right-sided flank pain and dysuria. It's difficult to know for how long its been happening but it seems to have been more than a couple weeks. He denies any fever or chills. On presentation he is nontoxic in appearance with stable vital signs aside from some mild tachycardia. He states that his heart rate is normally in the 90s IV was established when labs were drawn and he was hydrated with normal saline. UA revealed likely infection. Noncontrasted CT scan showed no sign of an obstructing stone. His tachycardia responded to the fluids. His labs showed hyperglycemia without evidence for acidosis. He states that for a blood sugar of 428 he normally would take 4 units of regular therefore that's what he was given. - Diagnoses Provider Diagnoses: UTI (urinary tract infection) Discharge - Sign-Out/Discharge Documenting (check all that apply): Post-Discharge Follow Up - Discharge Plan Condition: Stable Disposition: HOME Prescriptions: Ciprofloxacin TAB* [Cipro Tab*] 500 mg PO BID #20 tab Patient Education Materials: Urinary Tract Infection in Men (ED) Referrals: Wolf John MD [Primary Care Provider] - (2-3 days) Additional Instructions: Follow up with your PCP in 2-3 days. Return to the ED if you experience any new or worsening symptoms. - Billing Disposition and Condition Condition: STABLE Disposition: Home
== END 2018-06-04 12:49 | disposition home or self-care (01) ==
LOC: EDBD → ED 09:58
DX: N39.0 Urinary tract infection, site not specified (principal); B95.7 Other staphylococcus as the cause of diseases classified elsewhere; N20.0 Calculus of kidney; Z87.442 Personal history of urinary calculi; E10.8 Type 1 diabetes mellitus with unspecified complications; I25.10 Atherosclerotic heart disease of native coronary artery without angina pectoris; I73.9 Peripheral vascular disease, unspecified; K21.9 Gastro-esophageal reflux disease without esophagitis; M06.9 Rheumatoid arthritis, unspecified
CPT/HCPCS: 36415; 74176; 80053; 81003; 81015; 85025; 86140; 87077; 87086; 87186; 96360; 96361; 99283; A9270-GY

== ENCOUNTER 2018-07-01 23:26 | Observation (INO) | payer MEDICARE ==
[2018-07-01] MEDS ORDERED: Ondansetron INJ* 2 MG/ML VIAL IV ONE (23:45)
[2018-07-01] MEDS ORDERED: NS 0.9% 1000 ML* 2,000 ML IV ONE (23:45)
[2018-07-01] MEDS ORDERED: Insulin REGULAR(*) 1 UNITS UNIT IV PUSH ONE (23:46)
[2018-07-01] MEDS ORDERED: Pantoprazole IV* 40 MG IV ONE (23:46)
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
[2018-07-02 00:18] LABS: ABS Basophils 0.1 10^3/ul (0-0.2); ABS Eosinophils 0 10^3/ul (0-0.6); ABS Lymphocytes 0.8 10^3/ul (1.0-4.8); ABS Monocytes 0.5 10^3/ul (0-0.8); ABS Neutrophils 7.6 10^3/ul (1.5-7.7); ABS Nucleated RBC 0 10^3/ul; Eosinophil % 0.3 %; Hematocrit 44 % (42-52); Hemoglobin 13.9 g/dl (14.0-18.0); Lymphocyte % 8.4 %; Mean Corpuscular HGB Conc 32 g/dl (31-36); Mean Corpuscular Hemoglobin 27 pg (27-31); Mean Corpuscular Volume 83 fL (80-94); Mean Platelet Volume 8.4 fL (7.4-10.4); Nucleated Red Blood Cells % 0; Platelet Count 263 10^3/ul (150-450); Red Blood Count 5.24 10^6/ul (4.00-5.40); Red Cell Distribution Width 13 % (10.5-15); White Blood Count 8.9 10^3/ul (3.5-10.8)
[2018-07-02 00:27] LABS: Activated Partial Thrombo Time 29.1 seconds (26.0-36.3); INR 0.86 (0.77-1.02)
[2018-07-02 00:35] LABS: Albumin 3.6 g/dL (3.2-5.2); Albumin/Globulin Ratio 1.1 (1-3); BUN/Creatinine Ratio 26.3 (8-20); C Reactive Protein 7.35 mg/L (<8.01); EGFR Non-African American 89.2 (>60); Globulin 3.3 g/dL (2-4); Magnesium 1.8 mg/dL (1.9-2.7); Phosphorus 4.4 mg/dL (2.5-5.0); Potassium 4.3 mmol/L (3.5-5.0); Total Bilirubin 0.8 mg/dL (0.2-1.0); Total Protein 6.9 g/dL (6.4-8.9)
[2018-07-02] MEDS ORDERED: Ondansetron INJ* 2 MG/ML VIAL IV PRN (01:14)
[2018-07-02 01:41] LABS: Urine Appearance Clear; Urine Bacteria Absent (Absent); Urine Bilirubin Negative (Negative); Urine Blood Negative (Negative); Urine Color Straw; Urine Glucose 3+(>=500 mg/dL) (Negative); Urine Ketones 2+ (Negative); Urine Nitrite Negative (Negative); Urine Protein 2+(100 mg/dL) (Negative); Urine Red Blood Cell Absent (Absent); Urine Specific Gravity 1.023 (1.010-1.030); Urine Urobilinogen Negative (Negative); Urine White Blood Cell Trace(0-5/hpf) (Absent)
[2018-07-02] MEDS ORDERED: Insulin IVPB 100 units/100 ml 100 UNITS/100 ML UNIT IVPB SCH ×2 (02:00)
[2018-07-02] MEDS: NS 0.9% 1000 ML* 1,000 ML IV SCH ×2 (02:00→10:00)
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
[2018-07-02 04:55] LABS: Potassium 3.9 mmol/L (3.5-5.0)
[2018-07-02] MEDS ORDERED: D5W 1/2 NS 1000 ML BAG* 1,000 ML IV SCH (06:00)
[2018-07-02 08:47] LABS: BUN/Creatinine Ratio 26.6 (8-20); EGFR Non-African American 110.4 (>60); Potassium 3.5 mmol/L (3.5-5.0)
[2018-07-02] MEDS ORDERED: Ondansetron ODT TAB* 4 MG SL PRN ×2 (08:47→08:50)
[2018-07-02] MEDS ORDERED: Ondansetron ODT TAB* 4 MG ONE (08:56)
[2018-07-02] MEDS ORDERED: Insulin GLARGINE(*) 1 UNITS UNIT SUBCUT SCH (09:00)
[2018-07-02] MEDS ORDERED: Dextrose 50% Syringe 50 ML* 25 GM/50 ML SYRINGE IV PUSH PRN (12:05)
[2018-07-02 13:22] VITALS: BP 160/96
[2018-07-02] MEDS ORDERED: Insulin LISPRO* 1 UNITS UNIT SUBCUT SCH ×2 (16:30)
--- NOTE | 2018-07-02 23:08 | DS ---
CC: Dr. Abhishek Lorenzana * DISCHARGE SUMMARY: DATE OF ADMISSION: DATE OF DISCHARGE: 07/02/18 HISTORY OF PRESENT ILLNESS: This 37-year-old presented with diabetic ketoacidosis. He had nausea and vomiting, not clear what the inciting event was. I note he has very poor diabetic control and his A1c here was 12.4%. It might have been several years since he has seen an mail distributor. He does have an appointment to see one in the near future, however, I think within the week. He also is going to see mixing plant operator and his primary care. He was treated in the intensive care unit with intravenous fluids and insulin by infusion. He did quite well, his anion gap resolved completely. He was placed back on his usual Lantus and lispro. He does have trouble with gastroparesis and has a rather restricted diet for this reason. He had a small red area on his right big toe, which had the appearance of possibly being chronic. I think I would observe it at this time and not give the antibiotic and leave treatment for this up to the discretion of the mixing plant operator. FINAL DIAGNOSES: 1. Type 1 diabetes with diabetic ketoacidosis. 2. Gastroparesis and neurogenic bladder secondary to diabetes. 3. Peripheral neuropathy secondary to diabetes. 4. Scleroderma skin limited disease. DISCHARGE MEDICATIONS: 1. Ondansetron sublingual 4 mg every 4 hours p.r.n. 2. Lispro as per sliding scale, glargine insulin 34 units daily. CONDITION ON DISCHARGE: stable DISPOSITION ON DISCHARGE: discharge home [id number]/[facility] #: [id number] VIVIANE
== END 2018-07-02 13:00 | disposition home or self-care (01) ==
LOC: ED 23:26 → INTOOBSV 07-02 01:14 → ICU 07-02 01:14
PROVIDERS: ADMIT Hospitalist; ATTEND Internal Medicine
DX: E10.10 Type 1 diabetes mellitus with ketoacidosis without coma (principal); Z79.4 Long term (current) use of insulin; K31.84 Gastroparesis; G62.9 Polyneuropathy, unspecified; M34.9 Systemic sclerosis, unspecified; R10.84 Generalized abdominal pain; I25.10 Atherosclerotic heart disease of native coronary artery without angina pectoris; R11.2 Nausea with vomiting, unspecified
CPT/HCPCS: 36415; 71045; 80048; 80051; 80053; 81003; 81015; 82150; 82803; 82947; 83036; 83605; 83690; 83735; 84100; 85025; 85610; 85730; 86140; 87086; 87641; 93005; 96365; 96366; 96372; 96375; 99285; A9270-GY; G0378; J1815; J2405

== ENCOUNTER 2018-11-01 02:59 | Observation (INO) | payer MEDICARE ==
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
[2018-11-01] MEDS ORDERED: NS 0.9% 1000 ML** 2,000 ML IV ONE (03:23)
[2018-11-01] MEDS ORDERED: Insulin REGULAR(*) 1 UNITS UNIT IV PUSH ONE ×3 (03:25→04:56)
[2018-11-01] MEDS ORDERED: Ondansetron INJ* 2 MG/ML VIAL IV ONE (03:25)
[2018-11-01] MEDS ORDERED: Morphine 4 MG/ML VIAL (1 ml) 4 MG/ML VIAL IV ONE (03:26)
[2018-11-01] MEDS ORDERED: Pantoprazole IV* 40 MG IV ONE (03:26)
[2018-11-01 04:04] LABS: INR 0.86 (0.82-1.09)
[2018-11-01 04:14] LABS: Albumin 3.3 g/dL (3.2-5.2); Albumin/Globulin Ratio 1.3 (1-3); C Reactive Protein 14.27 mg/L (<8.01); Calcium 8.6 mg/dL (8.6-10.3); EGFR Non-African American 90.9 (>60); Globulin 2.6 g/dL (2-4); Magnesium 1.6 mg/dL (1.9-2.7); Phosphorus 2.5 mg/dL (2.5-5.0); Potassium 4.5 mmol/L (3.5-5.0); Total Bilirubin 0.9 mg/dL (0.2-1.0); Total Protein 5.9 g/dL (6.4-8.9)
[2018-11-01 04:20] LABS: ABS Eosinophils 0.2 10^3/ul (0-0.6); ABS Lymphocytes 0.4 10^3/ul (1.0-4.8); ABS Monocytes 0.7 10^3/ul (0-0.8); ABS Neutrophils 8.2 10^3/ul (1.5-7.7); Eosinophil % 2.1 %; Hematocrit 40 % (42-52); Hemoglobin 12.9 g/dL (14.0-18.0); Lymphocyte % 3.9 %; Mean Corpuscular HGB Conc 32 g/dL (31-36); Mean Corpuscular Hemoglobin 26 pg (27-31); Mean Corpuscular Volume 80 fL (80-94); Mean Platelet Volume 9.1 fL (7.4-10.4); Platelet Count 229 10^3/uL (150-450); Red Blood Count 5.05 10^6 /uL (4.18-5.48); Red Cell Distribution Width 13 % (10.5-15); White Blood Count 9.5 10^3/uL (3.5-10.8)
[2018-11-01] MEDS ORDERED: Dextrose 50% Syringe 50 ML* 25 GM/50 ML SYRINGE IV PUSH PRN (06:41)
[2018-11-01] MEDS ORDERED: Insulin GLARGINE(*) 1 UNITS UNIT SUBCUT ONE (06:41)
[2018-11-01] MEDS ORDERED: Insulin LISPRO* 1 UNITS UNIT SUBCUT ONE (06:41)
[2018-11-01] MEDS ORDERED: Insulin IVPB 100 units/100 ml 100 UNITS/100 ML UNIT IVPB SCH (07:00)
--- NOTE | 2018-11-01 07:26 | ED ---
Progress - Progress Note Progress Note: Patient is received as a sign out from Dr. Miguel to Dr. Gordon at 0700 11/01/18 shift change pending hospitalist consult and disposition of this patient. 0854 - Patient has been admitted to hospitalist services, Dr. Maxwell. Course/Dx - Course Course Of Treatment: Diabetic patient pending admission at time of sign out. His nausea has improved but sugars remained 400. Gave additional fluids and will admit to hospitalist. - Diagnoses Provider Diagnoses: Gastroparesis, Diabetes mellitus with hyperglycemia - Provider Notifications Discussed Care Of Patient With: Leslie Maxwell Time Discussed With Above Provider: 08:54 Instructed by Provider To: Other - 0854 - Patient has been admitted to hospitalist services, Dr. Maxwell. Discharge - Sign-Out/Discharge Documenting (check all that apply): Patient Departure - admit All imaging exams completed and their final reports reviewed: Yes Patient Received Moderate/Deep Sedation with Procedure: No - Discharge Plan Condition: Fair Disposition: ADMITTED TO [facility] - Billing Disposition and Condition Condition: FAIR Disposition: Admitted to [facility] - Attestation Statements Document Initiated by Scribe: Yes Documenting Scribe: DION PATTON Provider For Whom Scribe is Documenting (Include Credential): FREDDY GORDON MD Scribe Attestation: I, DION PATTON, scribed for FREDDY GORDON MD on 11/01/18 at 1426. Scribe Documentation Reviewed: Yes Provider Attestation: The documentation as recorded by the toddibDION azevedo accurately reflects the service I personally performed and the decisions made by me, FREDDY GORDON MD Status of Scribe Document: Viewed
[2018-11-01] MEDS ORDERED: NS 0.9% 1000 ML** 1,000 ML IV ONE (08:05)
[2018-11-01] MEDS ORDERED: Ondansetron INJ* 2 MG/ML VIAL IV PRN (08:54)
[2018-11-01] MEDS ORDERED: Acetaminophen TAB* 325 MG PO PRN (08:54)
[2018-11-01] MEDS ORDERED: Magnesium Sulfate 2 GM IV* 2 GM/50 ML BAG IVPB ONE (11:30)
[2018-11-01] MEDS: Insulin LISPRO* 1 UNITS UNIT SUBCUT SCH ×3 (12:02→20:56)
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
[2018-11-01 14:38] LABS: % Iron Saturation 8 % (15-55); Anion Gap 5 mmol/L (2-11); BUN/Creatinine Ratio 23.7 (8-20); Blood Urea Nitrogen 22 mg/dL (6-24); CO2 Carbon Dioxide 28 mmol/L (22-32); Calcium 8.5 mg/dL (8.6-10.3); Chloride 106 mmol/L (101-111); EGFR Non-African American 90.9 (>60); Glucose 194 mg/dL (70-100); Iron 20 ug/dL (50-212); Magnesium 2.5 mg/dL (1.9-2.7); Potassium 4.8 mmol/L (3.5-5.0); Sodium 139 mmol/L (135-145); Total Iron Binding Capacity 242 mcg/dL (250-450); Transferrin 173 mg/dL (203-362)
[2018-11-01 14:54] LABS: TSH (Thyroid Stimulating Horm) 0.74 mcIU/mL (0.34-5.60)
[2018-11-01 15:00] LABS: Ferritin 54.8 ng/mL (24-336)
[2018-11-01] MEDS ORDERED: Fluconazole 150 MG TAB PO ONE (15:30)
[2018-11-01] MEDS ORDERED: NS 0.9% 500 ML* 500 ML IV ONE (16:03)
[2018-11-01] MEDS: Ferrous Sulfate TAB* 325 MG PO SCH (16:45)
[2018-11-01] MEDS: Ascorbic Acid TAB* 500 MG PO SCH (16:45)
[2018-11-01 20:37] LABS: Urine Appearance Cloudy; Urine Bacteria Absent (Absent); Urine Bilirubin Negative (Negative); Urine Blood 1+ (Negative); Urine Color Yellow; Urine Glucose 3+(>=500 mg/dL) (Negative); Urine Ketones 1+ (Negative); Urine Nitrite Positive (Negative); Urine Protein 2+(100 mg/dL) (Negative); Urine Red Blood Cell 3+(>10/hpf) (Absent); Urine Specific Gravity 1.023 (1.010-1.030); Urine Urobilinogen Negative (Negative); Urine White Blood Cell 2+(11-20/hpf) (Absent)
[2018-11-01] MEDS ORDERED: cefTRIAXone(*) 1 GM in NS 0.9% 50 ML* 50 ML IVPB SCH (23:56)
--- NOTE | 2018-11-01 23:56 | PN ---
Progress Note - Progress Note Date of Service: 11/01/18 Note: Started Ceftriaxone for UA abnormality and possible UTI
[2018-11-02 07:29] VITALS: BP 137/78
[2018-11-02] MEDS: Insulin LISPRO* 1 UNITS UNIT SUBCUT SCH (08:24)
[2018-11-02] MEDS ORDERED: Insulin GLARGINE(*) 1 UNITS UNIT SUBCUT ONE (09:00)
[2018-11-02 09:04] LABS: BUN/Creatinine Ratio 23.4 (8-20); Calcium 8.2 mg/dL (8.6-10.3); EGFR African American 136.8 (>60); EGFR Non-African American 113.1 (>60); Potassium 3.8 mmol/L (3.5-5.0)
[2018-11-02] MEDS: Ascorbic Acid TAB* 500 MG PO SCH (09:05)
[2018-11-02] MEDS: Ferrous Sulfate TAB* 325 MG PO SCH (09:05)
--- NOTE | 2018-11-02 23:12 | DS ---
DISCHARGE SUMMARY: DATE OF ADMISSION: 11/01/18 DATE OF DISCHARGE: 11/02/18 ATTENDING PHYSICIAN: Mat Patel MD * (dictated by ODN Muñoz). PRIMARY CARE PROVIDER: None. PRIMARY DIAGNOSIS: Hyperglycemia, likely related to gastroparesis. SECONDARY DIAGNOSES: 1. Diabetes mellitus type 1. 2. Neurogenic bladder. 3. Gastroparesis. 4. Scleroderma. STUDIES: Chest x-ray on 11/01/18. Impression: No active cardiopulmonary disease is noted. EKG on 11/01/18: Sinus tachycardia to 106 beats per minute. No ST elevations or depressions, no T-wave inversions. Overall similar to EKG from June 2018. PERTINENT LABORATORY DATA: Date of admission point glucose is 478, creatinine 0.93, BUN 26, sodium 133, white count 9.5, hemoglobin 12.9, iron 20, TIBC 242, percent saturation of iron 8%, transferrin 173, ferritin 54.8, hemoglobin A1c 11.5. Urinalysis: Urine protein 2+, urine ketones +1, urine blood +1, nitrite positive, leucocyte esterase negative, white blood cell +2, red blood cell +3, bacteria absent, yeast present, glucose 3+. DISCHARGE MEDICATIONS: 1. Ascorbic acid 500 mg p.o. daily. 2. Ferrous sulfate 325 mg p.o. daily. 3. Macrobid 100 mg p.o. b.i.d. x7 days. CONTINUED HOME MEDICATIONS: 1. Insulin lispro 1 to 4 units subcu t.i.d. with sliding scale; 1 unit, 14 g carbs; 2 units, fingerstick over 200; 1 unit for every additional 50 mg over 200. 2. Insulin glargine 34 units subcutaneously at 9 a.m. 3. Zofran 4 mg sublingual q.4 hours p.r.n. nausea or vomiting. HISTORY OF PRESENT ILLNESS/HOSPITAL COURSE: The patient reported to the emergency department on 11/01/18 because he was having significant nausea and vomiting and measured his blood glucose to be elevated at 400s and decided to report to the emergency department. During his stay, he was not found to be in DKA given that he did not have an anion gap. His hyperglycemia was treated with subcutaneous insulin and returned to the mid 100 range. By the following morning, the patient's nausea and vomiting had resolved. The patient did receive IV ceftriaxone for empiric coverage of possible UTI given the urinalysis. He additionally received IV fluids in the setting of his hyperglycemia. He was also continued on his home dose of insulin lispro and glargine. His hemoglobin A1c is elevated to 11.5, which is an improvement from 12.4 in June. On day of discharge, the patient is feeling well. He denies abdominal pain, nausea, vomiting, diarrhea. He denies chest pain, difficulty breathing, dysuria , hematuria, blurred vision. The patient feels well and feels comfortable returning home. He has no complaints. REVIEW OF SYSTEMS: An 11-point review of systems was completed and all pertinent positives and negatives are above in the HPI. All other systems are negative. PHYSICAL EXAMINATION: General: Thin, white, young male sitting upright on the hospital bed, appearing in no acute distress. Head: Normocephalic, atraumatic. Eyes: PERRL. Sclerae anicteric. ENT: Mucous membranes moist. Neck: Supple without JVD. Cardio: Regular rate and rhythm without murmurs, rubs, or gallops. Lungs: Clear to auscultation throughout. Abdomen: Normoactive bowel sounds in all 4 quadrants. The abdomen of soft, nontender, nondistended. Extremities: Contraction noted to the left hand. No clubbing, cyanosis, or edema in all extremities. Neuro: The patient is without focal deficits. The patient is alert and oriented x3. Strength is 5/5 in all extremities. Skin: No rashes or ecchymosis. The skin is warm, dry, and intact. DISCHARGE PLAN: Diet: The patient is to return to a carb consistent diet. Activity: The patient is to return to his regular activity. The patient was advised to return to his previous home regimen of insulin and to continue using his p.r.n. Zofran as needed for nausea or vomiting related to his gastroparesis. The patient was advised to return to the emergency department if he has elevated blood glucose over 400 or any symptoms of hyperglycemia. The patient was advised to return to the emergency department if he develops fever, chills, painful urination, or hematuria. The patient was advised to take antibiotic. Because he does not have primary care provider, he will be following up at [facility]. An appointment was made for him on 11/10/18. Additionally, the patient was advised to call Dr. Calles's office for better control of his diabetes. The patient expressed his interest in receiving an insulin pump and this could be facilitated by his office. At the time of followup with the [facility], it would be of use if the urine culture were followed up. CONDITION ON DISCHARGE: Stable. DISPOSITION: Home. TIME SPENT: Approximately 30 minutes was spent on this discharge, approximately half of this time was spent at bedside. DON MUÑOZ [id number]/CPS #: [id number] VIVIANE
== END 2018-11-02 09:50 | disposition home or self-care (01) ==
LOC: ED 02:59 → MED 09:22
PROVIDERS: ADMIT Internal Medicine; ATTEND Internal Medicine
DX: E10.65 Type 1 diabetes mellitus with hyperglycemia (principal); N31.9 Neuromuscular dysfunction of bladder, unspecified; K31.84 Gastroparesis; M34.9 Systemic sclerosis, unspecified; R11.2 Nausea with vomiting, unspecified; I25.10 Atherosclerotic heart disease of native coronary artery without angina pectoris; I73.9 Peripheral vascular disease, unspecified; K21.9 Gastro-esophageal reflux disease without esophagitis; Z87.442 Personal history of urinary calculi
CPT/HCPCS: 36415; 71045; 80048; 80053; 81003; 81015; 82150; 82728; 82803; 82947; 83036; 83540; 83550; 83605; 83690; 83735; 84100; 84443; 85025; 85610; 85730; 86140; 87077; 87086; 87186; 93005; 99285; A9270-GY; G0378; J0696; J1815; J2270; J2405; J3475

== ENCOUNTER 2018-11-05 00:06 | Emergency (ER) | payer MEDICARE ==
[2018-11-05] MEDS ORDERED: NS 0.9% 1000 ML** 1,000 ML IV ONE (00:31)
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
[2018-11-05] MEDS ORDERED: Ondansetron INJ* 2 MG/ML VIAL IV ONE (00:39)
[2018-11-05 01:21] LABS: Hematocrit 39 % (42-52); Hemoglobin 12.3 g/dL (14.0-18.0); Mean Corpuscular HGB Conc 32 g/dL (31-36); Mean Corpuscular Hemoglobin 26 pg (27-31); Mean Corpuscular Volume 81 fL (80-94); Red Blood Count 4.76 10^6 /uL (4.18-5.48); Red Cell Distribution Width 14 % (10.5-15); White Blood Count 6.6 10^3/uL (3.5-10.8)
[2018-11-05 01:23] LABS: Calcium 7.3 mg/dL (8.6-10.3); Potassium 3.4 mmol/L (3.5-5.0)
[2018-11-05 01:29] LABS: BUN/Creatinine Ratio 20.6 (8-20); EGFR African American 157.9 (>60); EGFR Non-African American 130.5 (>60)
[2018-11-05 01:44] LABS: ABS Eosinophils 0.2 10^3/ul (0-0.6); ABS Lymphocytes 0.6 10^3/ul (1.0-4.8); ABS Monocytes 0.6 10^3/ul (0-0.8); ABS Neutrophils 5.2 10^3/ul (1.5-7.7); Eosinophil % 2.8 %; Lymphocyte % 9.8 %; Mean Platelet Volume 8.5 fL (7.4-10.4); Platelet Count 248 10^3/uL (150-450)
[2018-11-05] MEDS ORDERED: Pantoprazole IV* 40 MG IV ONE (02:01)
[2018-11-05] MEDS ORDERED: Pantoprazole TAB * 40 MG TAB PO ONE (04:44)
[2018-11-05] MEDS ORDERED: Pantoprazole TAB * 40 MG TAB ONE (04:46)
[2018-11-05] MEDS ORDERED: LORazepam TAB(*) 1 MG PO ONE (04:46)
[2018-11-05] MEDS ORDERED: Ondansetron ODT TAB* 4 MG SL ONE (06:13)
[2018-11-05 06:34] VITALS: BP 128/76
== END 2018-11-05 06:33 | disposition home or self-care (01) ==
LOC: ED 00:06
DX: R11.2 Nausea with vomiting, unspecified (principal); I25.10 Atherosclerotic heart disease of native coronary artery without angina pectoris; I73.9 Peripheral vascular disease, unspecified; E10.9 Type 1 diabetes mellitus without complications; K21.9 Gastro-esophageal reflux disease without esophagitis; K31.84 Gastroparesis; M06.9 Rheumatoid arthritis, unspecified; F41.9 Anxiety disorder, unspecified; F43.10 Post-traumatic stress disorder, unspecified; Z88.8 Allergy status to other drugs, medicaments and biological substances
CPT/HCPCS: 36415; 80048; 85025; 96361; 96374; 99284; A9270-GY; J2405

== ENCOUNTER 2019-02-11 07:15 | Day surgery (SDC) | payer MEDICARE ==
[~2019-02-11 07:15] MED LIST changes: -Buffered Lidocaine 0.9% SYRIN* 5 ML/SYR SYRINGE INTRADERM ONE; +Buffered Lidocaine 1% SYRIN* 1 ML/SYRINGE INTRADERM ONE; +Lactated Ringers 1000 ML Bag* 1,000 ML IV SCH
[2019-02-11] MEDS ORDERED: Buffered Lidocaine 1% SYRIN* 1 ML/SYRINGE INTRADERM ONE (08:01)
[2019-02-11] MEDS ORDERED: Famotidine IV* 10 MG/ML 2 ML (20 mg) ONE (08:01)
[2019-02-11] MEDS ORDERED: ceFAZolin 2 GM in NS PREMIX(*) 2 GM/100 ML BAG IVPB ONE (08:01)
[2019-02-11] MEDS ORDERED: Insulin LISPRO* 1 UNITS UNIT SUBCUT ONE (08:41)
[2019-02-11] MEDS ORDERED: Bupivacaine 0.5%* 50 ML MDV VIAL ONE (09:36)
[2019-02-11] MEDS ORDERED: Lidocaine 1% INJ* 10 MG/ML 30 ML SDV ONE ×2 (09:36→09:40)
[2019-02-11] MEDS ORDERED: Bupivacaine 0.25% SDV PF* 10 ML VIAL INJ ONE (09:38)
[2019-02-11] MEDS ORDERED: fentaNYL* 50 MCG/ML 2 ML VIAL (100 MCG VIAL) ONE (09:46)
[2019-02-11] MEDS ORDERED: Midazolam* 1 MG/ML 5 ML VIAL (5 MG) ONE (09:46)
[2019-02-11] MEDS ORDERED: Propofol* 10 MG/ML 20 ML BTL ONE (09:56)
[2019-02-11] MEDS ORDERED: Lidocaine 2% PF * 5 ML VIAL ONE (09:56)
--- NOTE | 2019-02-11 11:05 | OP ---
Operative Report - Blank - Operative Report Date of Operation: 02/11/19 Note: PATIENT: Jabier Dickerson DATE OF : 1980 DATE OF SURGERY: 02/11/2019 SURGEON: Ge Reynoso MD BOOTH CLEANER: DON Dinh ANESTHESIOLOGIST: Dr. Hinojosa PREOPERATIVE DIAGNOSIS: Right recurrent plantar lateral foot ulcer POSTOPERATIVE DIAGNOSIS: Right recurrent plantar lateral foot ulcer OPERATION: Right 5th metatarsal head excision ANESTHESIA: MAC IMPLANTS: none TOURNIQUET TIME: none SPECIMENS: 5th metatarsal head to pathology. ESTIMATED BLOOD LOSS: minimal COMPLICATIONS: none STATUS: Stable from the operating room to the recovery room. INDICATIONS FOR PROCEDURE: Jabier is a type 1 diabetic with neuropathy. He has been dealing with a right plantar lateral foot ulcer on and off for 2 years. He gets infections, about twice a year. Both operative and non operative treatment alternatives were reviewed. Further, the nature and risks of surgery were reviewed in careful detail. Our discussions regarding the risks of surgery included, but were not limited to, wound infection, wound problems, nerve injury, neuroma, RSD, persistent symptoms, blood clot, persistent or worsening infection, failure of the surgery, need for further amputation, and even the remote chance of catastrophic complication, including loss of limb. DESCRIPTION OF PROCEDURE: The patient was seen in the preoperative holding unit and informed written consent was obtained. The appropriate extremity was marked. The patient was then brought to the operating room and carefully positioned on the operating room table. Anesthesia was induced. All bony prominences were padded with great care. A chlorhexidine based pre-scrub was performed followed by a chloraprep prep and drape in standard sterile fashion. A surgical safety pause was then conducted in which we confirmed the appropriate patient, extremity, planned procedure, availability of equipment, indication and administration of antibiotics, and DVT prophylaxis in the form of a compression boot on the non- surgical extremity. I made a dorsolateral foot longitudinal incision. I sharply dissected down to the distal aspect of the fifth metatarsal. Meticulous hemostasis was obtained. I then used an oscillating saw to osteotomize the fifth metatarsal neck. This was beveled so that there would be no sharp edges laterally were plantarly. The fifth metatarsal head was then excised sharply from their surrounding soft tissue. I used a rongeur to smooth the cut edges. The wound was then copiously irrigated with sterile saline and cystoscopy tubing. There was no grossly infected or necrotic tissue present. The fifth metatarsal head was sent to pathology. Hemostasis was obtained. The wound was closed in layers utilizing 3-0 monocryl for the deep dermal layer and 3-0 nylon for the skin. I then used a 15 blade to pare down the callus at the plantar aspect of the lateral forefoot. A sterile dressing was then applied, followed by a splint with the ankle in a neutral position. There were no complications. All needle and sponge counts were correct at the end of the case. ATTESTATION: I attest I was present and scrubbed and performed the critical portions of the procedure myself. POSTOPERATIVE PLAN: Follow up will be in two weeks for a wound check, but we may leave the sutures in for longer. He will remain on oral Keflex.
[2019-02-11 11:46] VITALS: BP 159/97
== END 2019-02-11 11:48 | disposition home or self-care (01) ==
LOC: OR 07:15
PROVIDERS: ATTEND Orthopaedic Surgery
DX: E10.621 Type 1 diabetes mellitus with foot ulcer (principal); E10.51 Type 1 diabetes mellitus with diabetic peripheral angiopathy without gangrene; I70.235 Atherosclerosis of native arteries of right leg with ulceration of other part of foot; L97.519 Non-pressure chronic ulcer of other part of right foot with unspecified severity; Z96.41 Presence of insulin pump (external) (internal); Z79.4 Long term (current) use of insulin; E10.42 Type 1 diabetes mellitus with diabetic polyneuropathy; I10 Essential (primary) hypertension; F41.8 Other specified anxiety disorders
CPT/HCPCS: 88304; 88311; J0690; J1815; J2250; J2704; J3010; J3490

== ENCOUNTER 2019-03-23 16:04 | Emergency (ER) | payer MEDICARE ==
--- OUTSIDE RECORDS SUMMARY | 2019-03-23 16:27 | XMS REPORT | Continuity of Care Document ---
:1980 External Reference #:[id number] Author Name Jennyfer Izabela, KIESELGUHR REGENERATOR OPERATOR-Cde (transmitted by agent of provider Taylor Craft) Address [address], [place] [address] Care Team Providers Name Role Phone Abdi Benz MD - Care Team Information Behavioral Health Associate [phone] Ophthalmology Ap Hall MD - Endocrinology, Care Team Information Behavioral Health Associate Diabetes & Metabolism Godfrey Don MD - Director Of Intercollegiate Athletics Care Team Information Behavioral Health Associate Michelle Willingham, N.P. - Family Care Team Information Behavioral Health Associate Rivera Lechuga MD - Dermatology Care Team Information Behavioral Health Associate [facility] - Sleep Disorder Care Team Information Behavioral Health Associate Diagnostic Enrique Smith MD - Hospitalist Care Team Information Behavioral Health Associate [phone] Problems Active Problems Provider Date Diabetic polyneuropathy Wolf John M.D. Onset: 04/16/2011 Gastroparesis syndrome Wolf John M.D. Onset: 07/10/2011 Ulcer of foot Wolf John M.D. Onset: 07/10/2011 Type 1 diabetes mellitus uncontrolled Wolf John M.D. Onset: 2011 Psoriasis Wolf John M.D. Onset: 07/14/2012 Diabetic oculopathy associated with samantha 1 Wolf John M.D. Onset: 01/2013 diabetes mellitus Nervous system disorder due to diabetes Wolf John M.D. Onset: 2012 mellitus Arthropathy associated with a neurological Wolf John M.D. Onset: disorder Closed ill-defined fractures of upper limb Wolf John M.D. Onset: Depressive disorder Wolf John M.D. Onset: 03/30/2013 Chronic pain due to injury Diamond Caldwell M.D. Onset: 03/29/2014 Note: fracture of R femour, closed fracture of L AC joint Neurological disorder with samantha 2 Wolf John M.D. Onset: 05/19/2014 diabetes mellitus Peripheral vascular disease Wolf John M.D. Onset: 05/19/2014 Neurological disorder with samantha 1 Wolf John M.D. Onset: 05/19/2014 diabetes mellitus Corns and callus Wolf John M.D. Onset: 05/29/2015 Cramp in lower leg associated with Wolf John M.D. Onset: 05/29/2015 rest Mild recurrent major depression Wolf John M.D. Onset: 05/29/2015 Multiple complications of type 1 Wolf John M.D. Onset: 09/16/2016 diabetes mellitus Atherosclerosis of [place] arteries Eloise Green MD, [facility], Onset: 2017 of right leg with ulceration of FSCAI other part of foot Cellulitis of right lower limb Ge Reynoso MD Onset: 02/08/2019 Social History Type Date Description Comments Sex Unknown Tobacco Use Start: Unknown Never Smoked Cigarettes ETOH Use Denies alcohol use Recreational Drug Use Denies Drug Use Tobacco Use Start: Unknown Patient has never smoked Smoking Status Reviewed: 02/24/19 Patient has never smoked Exercise Type/Frequency Exercises regularly hiking around [place], cycling Allergies, Adverse Reactions, Alerts Active Allergies Reaction Severity Comments Date Compazine lock jaw 06/26/2011 Reglan Lock Jaw 08/01/2011 Inactive Allergies NKDA 09/26/2010 Medications Active Medications SIG Qnty Indications Ordering Date Provider Onetouch Ultrasoft use to test blood 200units E10.621 Samuel Calles MD 08/2018 [facility] Onetouch Ultra 2 use to test blood 1units E10.621 Jennyfer Gurrola, 2018 glucose 4 times KIESELGUHR REGENERATOR OPERATOR-Cde w/Device Kit daily Cephalexin Take 1 Capsule By Unknown 02/03/2019 500mg Mouth Three Times Capsules Daily x 3 wks Freestyle Lindsey 14 use at least 4 times 1units Samuel Calles MD 02/02/2019 Day/[place]/Flash daily with sensor Monitoring System Device Freestyle Lindsey 14 place one sensor 2units E10.65 Samuel Calles MD 2018 Day/Sensor/Flash every 14 days Monitoring System Misc Precision Xtra use as needed for 1units E10.65 Samuel Calles MD 11/24/2018 glucose and ketone Device monitoring Precision Xtra use as needed for 20units E10.65 Samuel Calles MD 11/24/2018 Ketone ketone testing Strips Precision Xtra use 4 times daily 150units E10.Silverio Calles MD 2018 Blood Glucose Test and as needed for Strips glucose testing Strips Vitamin D3 once weekly 4caps Gobler 10/07/2016 Gail John [id number] Capsules Lantus Solostar 30 units sc everyday 15ml E10.40 Samuel Calles MD 2016 at bedtime 100Unit/ML Solution Pen-Inject Novolog Flexpen 1-8 units 3 times a 15ml E10.40 Samuel Calles MD 08/05/2016 day with meals, cho 100Unit/ML ratio 1:14 plus Solution sliding scale and Pen-Inject correction of 1 unit for every 40 over 160; MDD 34 units Ondansetron dissolve one tablet 90tabs Samuel Calles MD 08/09/2015 4mg in mouth every 4 Tablets Dispers hours as needed Onetouch Test use 4 times a day as 200units E10.65 Samuel Calles MD 2013 directed Strips BD Pen may use 6 times a 200units Samuel Calles MD 05/01/2012 Needle/Mini/Ultraf day ine/31G X 3/16" 31G X 5 mm Misc Onetouch use six times a day 200units E10.65 Wolf 05/21/2011 Basic/Profile/One or as directed. last Gail John Touch II Test exam 05/29/15 Strips Strips Vitamin C 1 by mouth every day Unknown 500mg Capsules Zandra Root 1 capsule for Unknown 250mg gastroparesis Capsules Lisinopril 1 by mouth every day Unknown 5mg Tablets Amlodipine 1 by mouth every day Unknown Besylate 5mg Tablets Zofran 2mg Unknown History Medications Oxycodone HCL 1 - 2 tabs by 10caps Ge Reynoso MD 02/11/2019 - 5mg mouth every 12 02/23/2019 Capsules hours as needed pain Aspirin Adult take 1 tab a 30tabs Ge Reynoso MD 02/11/2019 - 325mg day for 2 weeks 02/23/2019 Tablets Pantoprazole Sodium 40MG Daily By 30tabs E10.65 Samuel Calles MD 2018 - Mouth 02/02/2019 40mg Tablets Immunizations CPT Code Status Date Vaccine Reaction Lot # [id number] Given 03/07/2016 Influenza Virus Vaccine, no immediate reaction [id number] Quadrivalent, Split, noted Preservative Free 36001 Given 05/29/2015 Influenza Virus Vaccine, [id number] Quadrivalent, Split, Preservative Free 05276 Given 03/29/2014 Influenza Virus Vaccine, [id number] Quadrivalent, Split, Preservative Free 64307 Given 01/14/2011 Pneumonia Vaccine [id number] Given 01/14/2011 Tdap - [id number] Tetanus/Diptheria/Acellular Pertussis Vital Signs Date Vital Result Comment 03/02/2019 11:03am Height 69 inches 5'9" Weight 137.00 lb BP Systolic 176 mmHg BP Diastolic 112 mmHg BMI (Body Mass Index) 20.2 kg/m2 02/24/2019 2:07pm Height 69 inches 5'9" Heart Rate 80 /min BP Systolic 122 mmHg BP Diastolic 92 mmHg Respiratory Rate 16 /min Body Temperature 97.4 F Pain Level 0 Results Test Date Facility Test Result H/L Range Note Laboratory test 02/11/2019 [facility] Point of Care 167 mg/dL High 70-100 [address] [place] [address] [phone] Laboratory test 02/11/2019 [facility] Surgical SEE RESULT [address] [place] [address] [phone] Laboratory test 02/11/2019 [facility] Point of Care 234 mg/dL High 70-100 [address] [place] [address] [phone] Laboratory test 02/11/2019 [facility] Point of Care 297 mg/dL High 70-100 [address] [place] [address] [phone] 1 Insulation And Flooring Assembler: [id number] 2 SEE RESULT BELOW Name: RONYGILMAR : [address]: Ge Reynoso MD Acct: [id number] Unit: [id number] AGE: 38 Location: OR Re02/11/19 SEX: M Status: LEONARDA JON SPEC: [id number] KEN: 02/11/19-[address] [facility] [address]: Ge Reynoso MD REQ: [id number] RECD: 02/11/19 STATUS: VAIBHAVT _ ORDERED: Nacho, LEVEL 3 FINAL DIAGNOSIS Right fifth metatarsal head, excision: -- Benign bone and cartilage with degenerative change. PRE-OPERATIVE DIAGNOSIS Non-healing wound fifth right metatarsal GROSS DESCRIPTION The specimen is received in formalin labeled, Right Fifth Metatarsal Head, and consists of a 1.8 x 1.3 x 1.2 cm owen-white ovoid focally cauterized bone fragment with a smooth and even margin of resection. The specimen is partially surfaced by a glistening smooth owen-white articular surface. Cage Fighter sections, one cassette following decalcification. Signed by and Reported on: Bee Aleman MD 02/17/19 1504 END OF REPORT DEPARTMENT OF PATHOLOGY, [address] [place] [address] Mamadou Lay M.D. Director [facility] # [id number] 3 Insulation And Flooring Assembler: [id number] 4 Insulation And Flooring Assembler: [id number] Procedures Date Code Description Status 02/11/2019 13556 Ostectomy Complete Excision 5TH Metatarsal Head Completed 02/11/2019 85268 Ostectomy Complete Excision 5TH Metatarsal Head Completed 02/02/2019 27498 ECHO Transthorasic Realtime 2D W Doppler & Color Flow Completed Hosp 07/05/2015 686986329 Diabetic Retinal Eye Exam Completed 06/19/2015 [id number] Diabetic Retinal Eye Exam Completed 09/14/2012 [id number] Diabetic Foot Exam Completed 09/03/2012 154853540 Diabetic Foot Exam Completed 07/29/2011 733658962 Diabetic Foot Exam Completed Medical Devices Description No Information Available Encounters Type Date Location Provider Dx Diagnosis Office Visit 02/08/2019 Orthopedic Ge Reynoso, L97.519 Non-prs chronic 8:15a [facility] ulcer oth prt right foot w unsp severity E10.621 Type 1 diabetes mellitus with foot ulcer L03.115 Cellulitis of right lower limb Office Visit 02/05/2019 [facility] Baker Coch, E10.65 Type 1 diabetes 8:40a Endocrinology of [place] mellitus with Recooperer hyperglycemia Office Visit 02/03/2019 [facility] Darren Reynolds E10.621 Type 1 diabetes 6:52a Infectious Diseases [place], mellitus with foot M.D. ulcer L97.519 Non-prs chronic ulcer oth prt right foot w unsp severity L03.115 Cellulitis of right lower limb E10.51 Type 1 diabetes w diabetic peripheral angiopath w/o gangrene Office Visit 02/03/2019 9:39a [facility] Enrique Smith, 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 Assoc,pc stap infct Hospitalists causing diseases classd elswhr E10.621 Type 1 diabetes mellitus with foot ulcer E10.43 Type 1 diabetes w diabetic autonomic (poly)neuropathy I73.9 Peripheral vascular disease, unspecified Office Visit 02/02/2019 2:31p Orthopedic Brandee Galloway E10.621 Type 1 diabetes [facility] [place] mellitus with C.M.A. foot ulcer L97.419 Non-prs chr ulcer of right heel and midfoot w unsp severt Office Visit 02/02/2019 6:51a [facility] Darren Reynolds E10.621 Type 1 Infectious Mary Jade. diabetes Diseases mellitus with foot ulcer L97.519 Non-prs chronic ulcer oth prt right foot w unsp severity L03.115 Cellulitis of right lower limb R78.81 Bacteremia Office Visit 02/02/2019 8:30a Wound Care Sindy Leger L97.519 Non- prs chronic [facility] Enma, MAPPER ulcer oth prt right foot w unsp severity E10.621 Type 1 diabetes mellitus with foot ulcer L03.115 Cellulitis of right lower limb I73.9 Peripheral vascular disease, unspecified Office Visit 02/02/2019 9:39a [facility] Enrique Smith MD R78.81 Bacteremia Assoc,pc Hospitalists E10.621 Type 1 diabetes mellitus with foot ulcer L97.519 Non-prs chronic ulcer oth prt right foot w unsp severity I10 Essential (primary) hypertension Office Visit 02/01/2019 9:39a [facility] Christina Smith MD R78.81 Bacteremia Assoc,pc Hospitalists E10.621 Type 1 diabetes mellitus with foot ulcer L97.519 Non-prs chronic ulcer oth prt right foot w unsp severity I10 Essential (primary) hypertension Office Visit 01/31/2019 9:38a [facility] Mat E10.621 Type 1 Assamy sinclair M.D. diabetes Hospitalists mellitus with foot ulcer L97.519 Non-prs chronic ulcer oth prt right foot w unsp severity I10 Essential (primary) hypertension Office Visit 01/30/2019 [facility] Myles Reynolds L03.115 Cellulitis of 9:38a Assamy sinclair M.D.,FACP right lower limb Hospitalists E10.621 Type 1 diabetes mellitus with foot ulcer L97.519 Non-prs chronic ulcer oth prt right foot w unsp severity I10 Essential (primary) hypertension Office Visit 11/24/2018 [facility] Samuel Calles, E10.65 Type 1 diabetes 10:00a Endocrinology of [place] mellitus with Recooperer hyperglycemia Office Visit 11/02/2018 [facility] Mary E10.65 Type 1 diabetes 10:30a amy Tatum PA-C mellitus with Hospitalists hyperglycemia N31.9 Neuromuscular dysfunction of bladder, unspecified K31.84 Gastroparesis L94.0 Localized scleroderma [morphea] Office Visit 11/01/2018 [facility] Leslie R73.9 Hyperglycemia, 10:29a amy Tatum MD unspecified Hospitalists R00.0 Tachycardia, unspecified R11.2 Nausea with vomiting, unspecified E87.1 Hypo-osmolality and hyponatremia Assessments Date Code Description Provider 03/02/2019 E10.621 Type 1 diabetes mellitus with foot SHAKILA HardenP-Cde ulcer 02/24/2019 E10.621 Type 1 diabetes mellitus with foot Ge Reynoso MD ulcer 02/24/2019 Z47.89 Encounter for other orthopedic Ge Reynoso MD aftercare 02/17/2019 E10.621 Type 1 diabetes mellitus with foot Ge Reynoso MD ulcer 02/17/2019 Z98.890 Other specified postprocedural states Ge Reynoso MD 02/11/2019 E10.621 Type 1 diabetes mellitus with foot Martin Willis PA-C ulcer 02/11/2019 E10.621 Type 1 diabetes mellitus with foot Ge Reynoso MD ulcer 02/11/2019 L03.115 Cellulitis of right lower limb Martin Willis PA-C 02/11/2019 L03.115 Cellulitis of right lower limb Ge Reynoso MD 02/08/2019 L97.519 Non-pressure chronic ulcer of other Ge Reynoso MD part of right foot with unspecified severity 02/08/2019 E10.621 Type 1 diabetes mellitus with foot Ge Reynoso MD ulcer 02/08/2019 L03.115 Cellulitis of right lower limb Ge Reynoso MD 02/05/2019 E10.65 Type 1 diabetes mellitus with Samuel Calles MD hyperglycemia 02/03/2019 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tant Staphylococcus Enrique Smith MD aureus infection as the cause of diseases classified elsewhere 02/03/2019 E10.621 Type 1 diabetes mellitus with foot Darren Jade M.D. ulcer 02/03/2019 E10.621 Type 1 diabetes mellitus with foot Enrique Smith MD ulcer 02/03/2019 L97.519 Non-pressure chronic ulcer of other Darren Jade M.D. part of right foot with unspecified severity 02/03/2019 E10.43 Type 1 diabetes mellitus with Enrique Smith MD diabetic autonomic (poly)neuropathy 02/03/2019 L03.115 Cellulitis of right lower limb Darren Jade M.D. 02/03/2019 I73.9 Peripheral vascular disease, Enrique Smith MD unspecified 02/03/2019 E10.51 Type 1 diabetes mellitus with Darren Jade M.D. diabetic peripheral angiopathy without gangrene 02/02/2019 E10.621 Type 1 diabetes mellitus with foot DON Goncalves ulcer 02/02/2019 L97.419 Non-pressure chronic ulcer of right DON Goncalves heel and midfoot with unspecified severity 02/02/2019 R78.81 Bacteremia Todd Quintana M.D. 02/02/2019 L97.519 Non-pressure chronic ulcer of other Sindy Norwood NP part of right foot with unspecified severity 02/02/2019 E10.621 Type 1 diabetes mellitus with foot Darren Jade M.D. ulcer 02/02/2019 E10.621 Type 1 diabetes mellitus with foot Sindy Africa Norwood, MAPPER ulcer 02/02/2019 R78.81 Bacteremia Enrique Smith MD 02/02/2019 L03.115 Cellulitis of right lower limb Sindy Africa Norwood, MAPPER 02/02/2019 L97.519 Non-pressure chronic ulcer of other Darren Jade M.D. part of right foot with unspecified severity 02/02/2019 I73.9 Peripheral vascular disease, Sindy Winnlorisilver Norwood, MAPPER unspecified 02/02/2019 L03.115 Cellulitis of right lower limb Darren Jade M.D. 02/02/2019 E10.621 Type 1 diabetes mellitus with foot Enrique Smith MD ulcer 02/02/2019 R78.81 Bacteremia Darren Jade M.D. 02/02/2019 L97.519 Non-pressure chronic ulcer of other Enrique Smith MD part of right foot with unspecified severity 02/02/2019 I10 Essential (primary) hypertension Enrique Smith MD 02/01/2019 R78.81 Bacteremia Enrique Smith MD 02/01/2019 E10.621 Type 1 diabetes mellitus with foot Enrique Smith MD ulcer 02/01/2019 L97.519 Non-pressure chronic ulcer of other Enrique Smith MD part of right foot with unspecified severity 02/01/2019 I10 Essential (primary) hypertension Enrique Smith MD 01/31/2019 E10.621 Type 1 diabetes mellitus with foot Mat Patel M.D. ulcer 01/31/2019 L97.519 Non-pressure chronic ulcer of other Mat Patel M.D. part of right foot with unspecified severity 01/31/2019 I10 Essential (primary) hypertension Mat Patel M.D. 01/30/2019 L03.115 Cellulitis of right lower limb Myles Onofre M.D., FACP 01/30/2019 E10.621 Type 1 diabetes mellitus with foot Myles Onofre M.D.,FACP ulcer 01/30/2019 L97.519 Non-pressure chronic ulcer of other Myles Onofre M.D.,FACP part of right foot with unspecified severity 01/30/2019 I10 Essential (primary) hypertension Myles Onofre M.D.,FACP 11/24/2018 E10.65 Type 1 diabetes mellitus with Samuel Calles MD hyperglycemia 11/02/2018 E10.65 Type 1 diabetes mellitus with Mary Razo PA-C hyperglycemia 11/02/2018 N31.9 Neuromuscular dysfunction of bladder, Mary Razo PA-C unspecified 11/02/2018 K31.84 Gastroparesis Mary Razo PA-C 11/02/2018 L94.0 Localized scleroderma [morphea] Mary Razo PA-C 11/01/2018 R73.9 Hyperglycemia, unspecified Leslie Maxwell MD 11/01/2018 R00.0 Tachycardia, unspecified Leslie Maxwell MD 11/01/2018 R11.2 Nausea with vomiting, unspecified Leslie Maxwell MD 11/01/2018 E87.1 Hypo-osmolality and hyponatremia Leslie Maxwell MD Plan of Treatment Future Appointment(s):03/10/2019 2:45 pm - Ge Reynoso MD at [facility]04/07/2019 1:20 pm - Samuel Calles MD at [facility]03/02/2019 - JACINTO Harden-CdeE10.621 Type 1 diabetes mellitus with foot ulcerComments:1. Please keep a log of your blood sugar monitoring 4x/day2. Bring these in so we can submit this to insuranceFollow up: With Dr Calles in March Functional Status Description No Information Available Mental Status Description No Information Available Referrals Refer to Reason for Referral Status Appt Date Marlon Alvarado DPM diabetic neuropathy with ulceration [address] [place] [address] [phone]
--- OUTSIDE RECORDS SUMMARY | 2019-03-23 16:27 | XMS REPORT | Continuity of Care Document ---
:1980 External Reference #:[id number] Author Name Ge Reynoso MD (transmitted by agent of provider Maribel Pires) Address [address] [place] [address] Care Team Providers Name Role Phone Abdi Benz MD - Care Team Information Key Filer [phone] Ophthalmology Ap Hall MD - Endocrinology, Care Team Information Key Filer Diabetes & Metabolism Godfrey Don MD - Supervisor Home Restoration Service Care Team Information Key Filer [phone] Michelle Willingham, N.P. - Family Care Team Information Key Filer Rivera Lechuga MD - Dermatology Care Team Information Key Filer [facility] - Sleep Disorder Care Team Information Key Filer [phone] Diagnostic Problems Active Problems Provider Date Diabetic polyneuropathy [...] of L AC joint Neurological disorder with type 2 Wolf John M.D. Onset: 05/19/2014 diabetes mellitus Peripheral vascular disease Wolf John M.D. Onset: 05/19/2014 Neurological disorder with type 1 Wolf John M.D. Onset: 05/19/2014 diabetes mellitus Corns and callus Wolf John M.D. Onset: 05/29/2015 Cramp in lower leg associated with Wolf John M.D. Onset: 05/29/2015 rest Mild recurrent major depression Wolf John M.D. Onset: 05/29/2015 Multiple complications of samantha 1 Wolf John M.D. Onset: 09/16/2016 diabetes mellitus Atherosclerosis of [place] arteries Eloise Green MD, [facility], Onset: 2017 of right leg with [...] MD 08/2018 Lancets glucose 4 times a Misc day and as needed Onetouch Ultra 2 use to test blood 1units E10.621 Samuel Calles MD 2018 glucose 4 times w/Device Kit daily Freestyle Lindsey 14 use at least 4 times 1units Samuel Calles MD 02/02/2019 Day/Perry/Flash daily with sensor Monitoring System Device Freestyle [...] Precision Xtra use 4 times daily 150units E10.65 Samuel Calles MD 2018 Blood Glucose Test and as needed for Strips glucose testing Strips Vitamin D3 once weekly 4caps Wolf 10/07/2016 Gail John [id number] Capsules Lantus Solostar 30 units sc everyday [...] Code Status Date Vaccine Reaction Lot # [id number] Given 03/07/2016 Influenza Virus Vaccine, no immediate reaction [id number] Quadrivalent, Split, noted Preservative Free 31594 Given 05/29/2015 Influenza Virus Vaccine, [id number] Quadrivalent, Split, Preservative Free 77981 Given 03/29/2014 Influenza Virus Vaccine, [id number] Quadrivalent, Split, Preservative Free 95677 Given 01/14/2011 Pneumonia Vaccine [id number] 85913 Given 01/14/2011 Tdap - [id number] Tetanus/Diptheria/Acellular Pertussis Vital Signs Date Vital Result Comment 02/24/2019 2:07pm Height 69 inches 5'9" Heart Rate 80 /min BP Systolic 122 mmHg BP Diastolic 92 mmHg Respiratory Rate 16 /min Body Temperature 97.4 F Pain Level 0 02/17/2019 2:28pm Height 69 inches 5'9" Weight 135.00 lb Heart Rate 123 /min Body Temperature 96.8 F O2 % BldC Oximetry 99 % BMI (Body Mass Index) 19.9 kg/m2 Results Test Date Facility Test Result H/L Range Note Laboratory test 02/11/2019 [facility] Point of Care 167 mg/dL High 70-100 [address] [place] [address] [phone] Laboratory test 02/11/2019 [facility] Surgical SEE RESULT [address] [address] [phone] Laboratory test 02/11/2019 [facility] Point of Care 234 mg/dL High 70-100 [address] [place] [address] [phone] Laboratory test 02/11/2019 [facility] Point of Care 297 mg/dL High 70-100 [address] [place] [address] [phone] Residential Sales Associate: [id number] 2 SEE RESULT BELOW Name: GILMAR DICKERSON : [address]: Ge Reynoso MD Acct: [id number] Unit: [id number] AGE: 38 Location: OR Re02/11/19 SEX: M Status: LEONARDA JON SPEC: [id number] KEN: 02/11/19 [facility] DR: Ge Reynoso MD REQ: [id number] RECD: 02/11/19 STATUS: AGUS _ ORDERED: Nacho, LEVEL 3 FINAL DIAGNOSIS [...] by a glistening smooth owen-white articular surface. Sanding Line Operator sections, one cassette following decalcification. Signed by and Reported on: Bee Aleman MD 02/17/19 1504 END OF REPORT DEPARTMENT OF PATHOLOGY, [address] [place] [address] Mamadou Lay M.D. Director [facility] # [id number] 3 Residential Sales Associate: [id number] Residential Sales Associate: [id number] Procedures Date Code Description Status 02/11/2019 04434 Ostectomy Complete Excision 5TH Metatarsal Head Completed 02/11/2019 97158 Ostectomy Complete Excision 5TH Metatarsal Head Completed 02/02/2019 78796 ECHO Transthorasic Realtime 2D W Doppler & Color Flow Completed Hosp 07/05/2015 025140458 Diabetic Retinal Eye Exam Completed 06/19/2015 028545198 Diabetic Retinal Eye Exam Completed 09/14/2012 [id number] Diabetic Foot Exam Completed 09/03/2012 001046104 Diabetic Foot Exam Completed 07/29/2011 196829707 Diabetic Foot Exam Completed Medical Devices Description No Information Available Encounters Type Date Location Provider Dx Diagnosis Office Visit 02/08/2019 [facility] Reynoso, L97.519 Non-prs chronic 8:15a [facility] ulcer oth prt right foot w unsp severity E10.621 Type 1 diabetes mellitus with foot ulcer L03.115 Cellulitis of right lower limb Office Visit 02/05/2019 [facility] Samuel Calles, E10.65 Type 1 diabetes 8:40a Endocrinology of mellitus with Director E Learning hyperglycemia Office Visit 02/03/2019 [facility] Raquel Reynolds E10.621 Type 1 diabetes 6:52a Infectious Diseases [place], mellitus with foot M.D. 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 diabetes Diseases mellitus with foot ulcer L97.519 Non-prs chronic ulcer oth prt right foot w unsp severity L03.115 Cellulitis of right lower limb R78.81 Bacteremia Office Visit 02/02/2019 8:30a Wound Care Sindy Leger L97.519 Non- prs chronic Center AT [facility] [place], HEEL BOOM OPERATOR ulcer oth prt right foot w unsp severity E10.621 Type 1 diabetes mellitus with foot ulcer L03.115 Cellulitis of right lower limb I73.9 Peripheral vascular disease, unspecified Office Visit 02/02/2019 9:39a [facility] Enrique Smith MD R78.81 Bacteremia Assoc, Hospitalists E10.621 Type 1 diabetes mellitus with foot ulcer L97.519 Non-prs chronic ulcer oth prt right foot w unsp severity I10 Essential (primary) hypertension Office Visit 02/01/2019 9:39a [facility] Enrique Smith MD R78.81 Bacteremia Assoc, Hospitalists E10.621 Type 1 diabetes mellitus with foot ulcer L97.519 Non-prs chronic ulcer oth prt right foot w unsp severity I10 Essential (primary) hypertension Office Visit 01/31/2019 9:38a [facility] Mat E10.621 Type 1 Assoc,amy Patel M.D. diabetes Hospitalists mellitus with foot ulcer L97.519 Non-prs chronic ulcer oth prt right foot w unsp severity I10 Essential (primary) hypertension Office Visit 01/30/2019 [facility] Myles Reynolds L03.115 Cellulitis of 9:38a Assamy sinclair M.D.,FACP right lower limb Hospitalists E10.621 Type 1 diabetes mellitus with foot ulcer L97.519 Non-prs chronic ulcer oth prt right foot w unsp severity I10 Essential (primary) hypertension Office Visit 11/24/2018 [facility] Samuel Calles, E10.65 Type 1 diabetes 10:00a Endocrinology of MD mellitus with Director E Learning hyperglycemia Office Visit 11/02/2018 [facility] Mary E10.65 Type 1 diabetes 10:30a Assocamy PA-C mellitus with Hospitalists hyperglycemia N31.9 Neuromuscular dysfunction of bladder, unspecified K31.84 Gastroparesis L94.0 Localized scleroderma [morphea] Office Visit 11/01/2018 [facility] Leslie R73.9 Hyperglycemia, 10:29a Assocamy MD unspecified Hospitalists R00.0 Tachycardia, unspecified R11.2 Nausea with vomiting, unspecified E87.1 Hypo-osmolality and hyponatremia Assessments Date Code Description Provider 02/24/2019 E10.621 Type 1 diabetes mellitus with foot Ge Reynoso MD ulcer 02/17/2019 E10.621 Type 1 diabetes mellitus with [...] M.D. diabetic peripheral angiopathy without gangrene 02/02/2019 R78.81 Bacteremia Todd Quintana M.D. 02/02/2019 L97.519 Non-pressure chronic ulcer of other Sindy [place]wood NP part of right foot with unspecified severity 02/02/2019 E10.621 Type 1 diabetes mellitus with foot Darren Jade M.D. ulcer 02/02/2019 E10.621 Type 1 diabetes mellitus with foot Sindy [place]wood, CACHORRO ulcer 02/02/2019 R78.81 Bacteremia Enrique Smith MD 02/02/2019 L03.115 Cellulitis of right lower limb Sindy [place], HEEL BOOM OPERATOR 02/02/2019 L97.519 Non-pressure chronic ulcer of other Darren Jade M.D. part of right foot with unspecified severity 02/02/2019 I73.9 Peripheral vascular disease, Sindy [place], HEEL BOOM OPERATOR unspecified 02/02/2019 L03.115 Cellulitis of right lower [...] Ge Reynoso MD at [facility]03/01/2019 1:20 pm - Darren Jade M.D. at [facility] Dj[facility]gsws20/23/2019 1:20 pm - Samuel Calles MD at [facility]03/02/2019 10:30 am - JACINTO Harden-Reneee at [facility]02/24/2019 - Ge Reynoso MDE10.621 Type 1 diabetes mellitus with foot ulcerFollow up:Follow Up: 2 weeks Functional Status Description No Information Available Mental Status Description No Information Available Referrals Refer to Dr Reason for Referral Status Appt Date Marlon Alvarado DPM diabetic neuropathy with ulceration Sent [address] [place] [address] [phone]
--- OUTSIDE RECORDS SUMMARY | 2019-03-23 16:28 | XMS REPORT | Continuity of Care Document ---
:1980 External Reference #:[id number] Author Name Ge Reynoso MD (transmitted by agent of provider Maribel Pires) Address [address] [place] [address] Care Team Providers Name Role Phone Abdi Benz MD - Care Team Information Farm Contractor Buyer [phone] Ophthalmology Ap Hall MD - Endocrinology, Care Team Information Farm Contractor Buyer Diabetes & Metabolism Godfrey Don MD - Smoking Pipes Cleaner Care Team Information Farm Contractor Buyer Michelle Willingham, N.P. - Family Care Team Information Farm Contractor Buyer Rivera Lechuga MD - Dermatology Care Team Information Farm Contractor Buyer [facility] - Sleep Disorder Care Team Information Farm Contractor Buyer Diagnostic Problems Active Problems Provider Date Diabetic [...] M.D. Onset: 09/16/2016 diabetes mellitus Atherosclerosis of [place] arteries Eloise Green MD, [facility], Onset: 2017 of right leg with ulceration of FSCAI other part of foot Cellulitis of right lower limb Ge Reynoso MD Onset: 02/08/2019 Social History Type Date Description Comments Sex Unknown Tobacco Use Start: Unknown Never Smoked Cigarettes ETOH Use Denies alcohol use Recreational Drug Use Denies Drug Use Tobacco Use Start: Unknown Patient has never smoked Smoking Status Reviewed: 02/17/19 Patient has never smoked Exercise Type/Frequency Exercises regularly hiking around [place], cycling Allergies, Adverse Reactions, Alerts Active Allergies Reaction Severity Comments Date Compazine lock jaw 06/26/2011 Reglan Lock Jaw 08/01/2011 Inactive Allergies NKDA 09/26/2010 Medications Active Medications SIG Qnty Indications Ordering Date Provider Onetouch Ultrasoft use to test blood 200units Samuel Calles MD 02/16/2019 Lancets glucose 4 times a Misc day and as needed Oxycodone HCL 1 - 2 tabs by mouth 10caps Ge Reynoso, 02/11/2019 5mg every 12 hours as MD Capsules needed pain Aspirin Adult take 1 tab a day for 30tabs Ge Reynoso, 02/11/2019 2 weeks MD 325mg Tablets Onetouch Ultra 2 use to test blood 1units E10.621 Samuel Calles MD 2018 glucose 4 times w/Device Kit daily Freestyle Lindsey 14 use at least 4 times 1units Samuel Calles MD 02/02/2019 Day/Renick/Flash daily with sensor Monitoring System Device Freestyle [...] once weekly 4caps Wolf 10/07/2016 Gail John [id number] Capsules Lantus Solostar 30 units sc everyday [...] 5mg Tablets Zofran 2mg Unknown History Medications Pantoprazole Sodium 40MG Daily By 30tabs E10.65 Samuel Calles MD 2018 - 40mg Mouth 02/02/2019 Tablets Immunizations CPT Code Status Date Vaccine Reaction Lot # [id number] Given 03/07/2016 Influenza Virus Vaccine, no immediate reaction [id number] Quadrivalent, Split, noted Preservative Free 89946 Given 05/29/2015 Influenza Virus Vaccine, [id number] Quadrivalent, Split, Preservative Free 60551 Given 03/29/2014 Influenza Virus Vaccine, [id number] Quadrivalent, Split, Preservative Free 28511 Given 01/14/2011 Pneumonia Vaccine [id number] 66142 Given 01/14/2011 Tdap - [id number] Tetanus/Diptheria/Acellular Pertussis Vital Signs Date Vital Result Comment 02/17/2019 2:28pm Height 69 inches 5'9" Weight 135.00 lb Heart Rate 123 /min Body Temperature 96.8 F O2 % BldC Oximetry 99 % BMI (Body Mass Index) 19.9 kg/m2 02/08/2019 8:32am Height 70.5 inches 5'10.50" Weight 140.00 lb Heart Rate 88 /min BP Systolic 140 mmHg BP Diastolic 84 mmHg BMI (Body Mass Index) 19.8 kg/m2 Results Test Date Facility Test Result H/L Range Note Laboratory test 02/11/2019 [facility] Point of Care 167 mg/dL High 70-100 [address] [place] [address] [phone] Laboratory test 02/11/2019 [facility] Point of Care 234 mg/dL High 70-100 [address] [place], [place] [address] [phone] Laboratory test 02/11/2019 [facility] Point of Care 297 mg/dL High 70-100 [address] [place], [place] [address] [phone] Shuttle Fitting Supervisor: [id number] Shuttle Fitting Supervisor: [id number] Shuttle Fitting Supervisor: [id number] Procedures Date Code Description Status 02/11/2019 21294 Ostectomy Complete Excision 5TH Metatarsal Head Completed 02/11/2019 45761 Ostectomy Complete Excision 5TH Metatarsal Head Completed 02/02/2019 63850 ECHO Transthorasic Realtime 2D W Doppler & Color Flow Completed Hosp 07/05/2015 019604204 Diabetic Retinal Eye Exam Completed 06/19/2015 411763035 Diabetic Retinal Eye Exam Completed 09/14/2012 550310655 Diabetic Foot Exam Completed 09/03/2012 684600652 Diabetic Foot Exam Completed 07/29/2011 073375431 Diabetic Foot Exam Completed Medical Devices Description No Information Available Encounters Type Date Location Provider Dx Diagnosis Office Visit 02/05/2019 [facility] Samuel Calles, E10.65 Type 1 diabetes 8:40a Endocrinology of [facility] mellitus with hyperglycemia Office Visit 02/03/2019 [facility] Violet Reynolds E10.621 Type 1 diabetes 6:52a Infectious Diseases Gail Jade mellitus with foot ulcer L97.519 Non-prs chronic ulcer oth prt right foot w unsp severity L03.115 Cellulitis of right lower limb E10.51 Type 1 diabetes w diabetic peripheral angiopath w/o gangrene Office Visit 02/03/2019 9:39a [facility] Enrique Smith, 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 Assyahir,pc [facility] Hospitalists causing diseases classd elswhr E10.621 Type 1 diabetes mellitus with foot ulcer E10.43 Type 1 diabetes w diabetic autonomic (poly)neuropathy I73.9 Peripheral vascular disease, unspecified Office Visit 02/02/2019 6:51a [facility] Raquel Reynolds E10.621 Type 1 Infectious Gail Jade diabetes Diseases mellitus with foot ulcer L97.519 Non-prs chronic ulcer oth prt right foot w unsp severity L03.115 Cellulitis of right lower limb R78.81 Bacteremia Office Visit 02/02/2019 8:30a Wound Care Sindy Leger L97.519 Non- prs chronic Center AT [facility] Enma [employer] [employer] ulcer oth prt right foot w unsp severity E10.621 Type 1 diabetes mellitus with foot ulcer L03.115 Cellulitis of right lower limb I73.9 Peripheral vascular disease, unspecified Office Visit 02/02/2019 9:39a [facility] Enrique Smith MD R78.81 Bacteremia Assoc, Hospitalists E10.621 Type 1 diabetes mellitus with foot ulcer L97.519 Non-prs chronic ulcer oth prt right foot w unsp severity I10 Essential (primary) hypertension Office Visit 02/01/2019 9:39a [facility] Enrique Smith MD R78.81 Bacteremia Assoc, Hospitalists E10.621 Type 1 diabetes mellitus with foot ulcer L97.519 Non-prs chronic ulcer oth prt right foot w unsp severity I10 Essential (primary) hypertension Office Visit 01/31/2019 9:38a [facility] Mat E10.621 Type 1 Assoc,amy Patel M.D. diabetes Hospitalists mellitus with foot ulcer L97.519 Non-prs chronic ulcer oth prt right foot w unsp severity I10 Essential (primary) hypertension Office Visit 01/30/2019 [facility] Myles Reynolds L03.115 Cellulitis of 9:38a Assamy sinclair M.D.,FACP right lower limb Hospitalists E10.621 Type 1 diabetes mellitus with foot ulcer L97.519 Non-prs chronic ulcer oth prt right foot w unsp severity I10 Essential (primary) hypertension Office Visit 11/24/2018 [facility] Samuel Calles, E10.65 Type 1 diabetes 10:00a Endocrinology of mellitus with Manager Commercial Sales hyperglycemia Office Visit 11/02/2018 [facility] Mary E10.65 Type 1 diabetes 10:30a amy Tatum PA-C mellitus with Hospitalists hyperglycemia N31.9 Neuromuscular dysfunction of bladder, unspecified K31.84 Gastroparesis L94.0 Localized scleroderma [morphea] Office Visit 11/01/2018 [facility] Leslie R73.9 Hyperglycemia, 10:29a Assoc,amy Maxwell MD unspecified Hospitalists R00.0 Tachycardia, unspecified R11.2 Nausea with vomiting, unspecified E87.1 Hypo-osmolality and hyponatremia Assessments Date Code Description Provider 02/17/2019 E10.621 Type 1 diabetes mellitus with foot Ge Reynoso MD ulcer 02/11/2019 E10.621 Type 1 diabetes mellitus with foot Martin Willis PA-C ulcer 02/11/2019 E10.621 Type 1 diabetes mellitus with foot Ge Reynoso MD ulcer 02/11/2019 L03.115 Cellulitis of right lower limb Martin Willis PA-C 02/11/2019 L03.115 Cellulitis of right lower limb Ge Reynoso MD 02/08/2019 E10.621 Type 1 diabetes mellitus with [...] L03.115 Cellulitis of right lower limb Darren Jaed M.D. 02/03/2019 I73.9 Peripheral vascular disease, Enrique Smith MD unspecified 02/03/2019 E10.51 Type 1 diabetes mellitus with Darren Jade M.D. diabetic peripheral angiopathy without gangrene 02/02/2019 R78.81 Bacteremia Tdod Quintana M.D. 02/02/2019 L97.519 Non-pressure chronic ulcer of other Sindy Norwood NP part of right foot with unspecified severity 02/02/2019 E10.621 Type 1 diabetes mellitus with foot Darren Jade M.D. ulcer 02/02/2019 E10.621 Type 1 diabetes mellitus with foot Sindy Norwood, CACHORRO ulcer 02/02/2019 R78.81 Bacteremia Enrique Smith MD 02/02/2019 L03.115 Cellulitis of right lower limb Sindy Norwood NP 02/02/2019 L97.519 Non-pressure chronic ulcer of other Darren Jade M.D. part of right foot with unspecified severity 02/02/2019 I73.9 Peripheral vascular disease, Sindy Norwood NP unspecified 02/02/2019 L03.115 Cellulitis of right lower [...] Leslie Maxwell MD Plan of Treatment Future Appointment(s):02/24/2019 2:00 pm - Ge Reynoso MD at [facility]03/01/2019 1:20 pm - Darren Jade M.D. at [facility]2019 1:20 pm - Samuel Calles MD at [facility]03/02/2019 10:30 am - JACINTO Harden-Cde at [facility]02/17/2019 - Ge Reynoso MDE10.621 Type 1 diabetes mellitus with foot ulcerFollow up:Follow Up: 1 week Functional Status Description No Information Available Mental Status Description No Information Available Referrals Refer to Dr Reason for Referral Status Appt Date Marlon Alvarado DPM diabetic neuropathy with ulceration Sent [address] [place] [id number] [phone]
--- OUTSIDE RECORDS SUMMARY | 2019-03-23 16:28 | XMS REPORT | Continuity of Care Document ---
:1980 External Reference #:[id number] Author Name Ge Reynoso MD (transmitted by agent of provider Lona Catherine) Address [address] [place] [address] Care Team Providers Name Role Phone Abdi Benz MD - Care Team Information Table Games Floor Supervisor [phone] Ophthalmology Ap Hall MD - Endocrinology, Care Team Information Table Games Floor Supervisor Diabetes & Metabolism Godfrey Don MD - Liquid Chlorine Operator Care Team Information Table Games Floor Supervisor [phone] Michelle Willingham, N.P. - Family Care Team Information Table Games Floor Supervisor Rivera Lechuga MD - Dermatology Care Team Information Table Games Floor Supervisor [facility] - [place] Disorder Care Team Information Table Games Floor Supervisor Diagnostic Problems Active Problems Provider Date Diabetic [...] M.D. Onset: 09/16/2016 diabetes mellitus Atherosclerosis of [place] arteries Eloise Green MD, [facility], Onset: 2017 of right leg with ulceration of FSCAI other part of foot Cellulitis of right lower limb Ge Reynoso MD Onset: 02/08/2019 Social History Type Date Description Comments Sex Unknown Tobacco Use Start: Unknown Never Smoked Cigarettes ETOH Use Denies alcohol use Recreational Drug Use Denies Drug Use Tobacco Use Start: Unknown Patient has never smoked Smoking Status Reviewed: 02/08/19 Patient has never smoked Exercise Type/Frequency Exercises regularly hiking around [place], cycling Allergies, Adverse Reactions, Alerts Active Allergies Reaction Severity Comments Date Compazine lock jaw 06/26/2011 Reglan Lock Jaw 08/01/2011 Inactive Allergies NKDA 09/26/2010 Medications Active Medications SIG Qnty Indications Ordering Date Provider Onetouch Ultra 2 use to test blood 1units E10.621 Samuel Calles MD 2018 glucose 4 times w/Device Kit daily Freestyle Lindsey 14 use at least 4 times 1units Samuel Calles MD 02/02/2019 Day/[place]/Flash daily with sensor Monitoring System Device Freestyle [...] once weekly 4caps Wolf 10/07/2016 Gail John [id number] Capsules Lantus Solostar 30 units sc everyday [...] Test use 4 times a day as 100units E10.65 Diamond Caldwell, 2013 elisabeth Reynolds Strips BD Pen may use 6 times a 200units Samuel Calles MD 05/01/2012 Needle/Mini/Ultraf day ine/31G X 3/16" 31G X 5 mm Misc Onetouch use six times a day 200units E10.65 Wolf 05/21/2011 Basic/Profile/One or as directed. popeye John M.D. Touch II Test exam 05/29/15 Strips Strips Vitamin C 1 by mouth every day Unknown 500mg Capsules Zandra Root 1 capsule for Unknown 250mg gastroparesis Capsules Lisinopril 1 by mouth every day Unknown 5mg Tablets Amlodipine 1 by mouth every day Unknown Besylate 5mg Tablets Zofran 2mg Unknown History Medications Pantoprazole Sodium 40MG Daily By 30tabs E10Hayley Calles MD 2018 - 40mg Mouth 02/02/[address] Immunizations CPT Code Status Date Vaccine Reaction Lot # [id number] Given 03/07/2016 Influenza Virus Vaccine, no immediate reaction [id number] Quadrivalent, Split, noted Preservative Free 06763 Given 05/29/2015 Influenza Virus Vaccine, [id number] Quadrivalent, Split, Preservative Free 41187 Given 03/29/2014 Influenza Virus Vaccine, [id number] Quadrivalent, Split, Preservative Free 53955 Given 01/14/2011 Pneumonia Vaccine [id number] 70605 Given 01/14/2011 Tdap - [id number] Tetanus/Diptheria/Acellular Pertussis Vital Signs Date Vital Result Comment 02/08/2019 8:32am Height 70.5 inches 5'10.50" Weight 140.00 lb Heart Rate 88 /min BP Systolic 140 mmHg BP Diastolic 84 mmHg BMI (Body Mass Index) 19.8 kg/m2 02/05/2019 8:43am Height 69 inches 5'9" Weight 141.00 lb w/ shoes Heart Rate 101 /min BP Systolic Sitting 158 mmHg BP Diastolic Sitting 98 mmHg BMI (Body Mass Index) 20.8 kg/m2 Results Description No Information Available Procedures Date Code Description Status 02/02/2019 33537 ECHO Transthorasic Realtime 2D W Doppler & Color Flow Completed Hosp 07/05/2015 704201248 Diabetic Retinal Eye Exam Completed 06/19/2015 711537657 Diabetic Retinal Eye Exam Completed 09/14/2012 366198877 Diabetic Foot Exam Completed 09/03/2012 492191344 Diabetic Foot Exam Completed 07/29/2011 377219055 Diabetic Foot Exam Completed Medical Devices Description No Information Available Encounters Type Date Location Provider Dx Diagnosis Office Visit 02/03/2019 [facility] Violet Reynolds E10.621 Type 1 diabetes 6:52a Leodan Jade M.D. mellitus with Diseases foot ulcer L97.519 Non-prs chronic ulcer oth prt right foot w unsp severity L03.115 Cellulitis of right lower limb E10.51 Type 1 diabetes w diabetic peripheral angiopath w/o gangrene Office Visit 02/02/2019 6:51a [facility] Reynolds E10.621 Type 1 Leodan Jade M.D. diabetes Diseases mellitus with foot ulcer L97.519 Non-prs chronic ulcer oth prt right foot w unsp severity L03.115 Cellulitis of right lower limb R78.81 Bacteremia Office Visit 02/02/2019 9:39a [facility] Enrique Smith MD R78.81 Bacteremia Assoc, Hospitalists E10.621 Type 1 diabetes mellitus with foot ulcer L97.519 Non-prs chronic ulcer oth prt right foot w unsp severity I10 Essential (primary) hypertension Office Visit 02/01/2019 9:39a [facility] Enrique Smith MD R78.81 Bacteremia Assoc, Hospitalists E10.621 Type 1 diabetes mellitus with foot ulcer L97.519 Non-prs chronic ulcer oth prt right foot w unsp severity I10 Essential (primary) hypertension Office Visit 01/31/2019 9:38a [facility] Mat E10.621 Type 1 Assamy sinclair M.D. diabetes Hospitalists mellitus with foot ulcer L97.519 Non-prs chronic ulcer oth prt right foot w unsp severity I10 Essential (primary) hypertension Office Visit 01/30/2019 [facility] Myles Reynolds L03.115 Cellulitis of 9:38a Assamy sinclair M.D.,FACP right lower limb Hospitalists E10.621 Type 1 diabetes mellitus with foot ulcer L97.519 Non-prs chronic ulcer oth prt right foot w unsp severity I10 Essential (primary) hypertension Office Visit 11/24/2018 [facility] Samuel Calles, E10.65 Type 1 diabetes 10:00a Endocrinology of mellitus with Air Conditioning Installer hyperglycemia Office Visit 11/02/2018 [facility] Mary E10.65 Type 1 diabetes 10:30a Assocamy PA-C mellitus with Hospitalists hyperglycemia N31.9 Neuromuscular dysfunction of bladder, unspecified K31.84 Gastroparesis L94.0 Localized scleroderma [morphea] Office Visit 11/01/2018 [facility] Leslie R73.9 Hyperglycemia, 10:29a Assocamy MD unspecified Hospitalists R00.0 Tachycardia, unspecified R11.2 Nausea with vomiting, unspecified E87.1 Hypo-osmolality and hyponatremia Assessments Date Code Description Provider 02/08/2019 E10.621 Type 1 diabetes mellitus with foot Ge Reynoso MD ulcer 02/08/2019 L03.115 Cellulitis of right lower limb Ge Angeles, MD 02/05/2019 E10.621 Type 1 diabetes mellitus with foot Samuel Calles MD ulcer 02/03/2019 E10.621 Type 1 diabetes mellitus with foot Darren Jade M.D. ulcer 02/03/2019 L97.519 Non-pressure chronic ulcer of other Darren Jade M.D. part of right foot with unspecified severity 02/03/2019 L03.115 Cellulitis of right lower limb Darren Jade M.D. 02/03/2019 E10.51 Type 1 diabetes mellitus with Darren Jade M.D. diabetic peripheral angiopathy without gangrene 02/02/2019 E10.621 Type 1 diabetes mellitus with foot Darren Jade M.D. ulcer 02/02/2019 R78.81 Bacteremia Enrique Smith MD 02/02/2019 L97.519 Non-pressure chronic ulcer of other Darren Jade M.D. part of right foot with unspecified severity 02/02/2019 L97.519 Non-pressure chronic ulcer of other Sindy Norwood NP part of right foot with unspecified severity 02/02/2019 L03.115 Cellulitis of right lower limb Darren Jade M.D. 02/02/2019 E10.621 Type 1 diabetes mellitus with foot Enrique Smith MD ulcer 02/02/2019 R78.81 Bacteremia Darren Jade M.D. 02/02/2019 E10.621 Type 1 diabetes mellitus with foot Sindy Norwood NP ulcer 02/02/2019 L97.519 Non-pressure chronic ulcer of other Enrique Smith MD part of right foot with unspecified severity 02/02/2019 L03.115 Cellulitis of right lower limb Sindy Norwood NP 02/02/2019 I10 Essential (primary) hypertension Enrique Smith MD 02/02/2019 I73.9 Peripheral vascular disease, Sindy Norwood NP unspecified 02/02/2019 Z78.9 Other specified health status Sindy Norwood NP 02/01/2019 R78.81 Bacteremia Enrique Smith MD 02/01/2019 [...] Leslie Maxwell MD Plan of Treatment Future Appointment(s):02/23/2019 8:30 am - Ge Reynoso MD at [facility]04/07/2019 1:20 pm - Samuel Calles MD at [facility]03/02/2019 10:30 am - JACINTO Harden-Cde at [facility]02/08/2019 - Ge Reynoso MDE10.621 Type 1 diabetes mellitus with foot ulcerFollow up:Follow Up: 1 week utrcxeC59.115 Cellulitis of right lower limb Functional Status Description No Information Available Mental Status Description No Information Available Referrals Refer to Dr Reason for Referral Status Appt Date Marlon Alvarado DPM diabetic neuropathy with ulceration Sent [address] [place] [address] [phone]
--- OUTSIDE RECORDS SUMMARY | 2019-03-23 16:28 | XMS REPORT | Continuity of Care Document ---
:1980 External Reference #:[id number] Author Name Samuel Calles MD (transmitted by agent of provider Bettina Liconat) Address [address] [place] [address] Care Team Providers Name Role Phone Abdi Benz MD - Care Team Information Dehydrator Operator [phone] Ophthalmology Ap Hall MD - Endocrinology, Care Team Information Dehydrator Operator Diabetes & Metabolism Godfrey Don MD - Substation Designer Care Team Information Dehydrator Operator Michelle Willingham, N.P. - Family Care Team Information Dehydrator Operator Rivera Lechuga MD - Dermatology Care Team Information Dehydrator Operator [facility] - Sleep Disorder Care Team Information Dehydrator Operator Diagnostic Problems Active Problems Provider Date Diabetic [...] M.D. Onset: 09/16/2016 diabetes mellitus Atherosclerosis of [place] arteries Eloise Green MD, [facility], Onset: 2017 of right leg with ulceration of FSCAI other part of foot Social History Type Date Description Comments Sex Unknown Tobacco Use Start: Unknown Never Smoked Cigarettes ETOH Use Denies alcohol use Recreational Drug Use Denies Drug Use Tobacco Use Start: Unknown Patient has never smoked Smoking Status Reviewed: 02/05/19 Patient has never smoked Exercise Type/Frequency Exercises [...] 4 times 1units Samuel Calles MD 02/02/2019 Day/[place]/Flash daily with sensor Monitoring System Device Freestyle Lindsey 14 place one sensor 2units E10.65 Samuel Calles MD 2018 Day/Sensor/Flash every 14 days [facility] use as needed for 1units E10.65 Samuel Calles MD 11/24/2018 glucose and ketone Device monitoring Precision Xtra use as needed for 20units E10.Silverio Calles MD 11/24/2018 Ketone ketone testing Strips Precision Xtra use 4 times daily 150units E10.Silverio Calles MD 2018 Blood Glucose Test and as needed for Strips glucose testing Strips Vitamin D3 once weekly 4caps [place] 10/07/2016 Gail John 21249Dbly Capsules Lantus Solostar 30 units sc everyday 15ml E10.Jg Calles MD 2016 at bedtime 100Unit/ML Solution [...] day as 100units E10.65 Diamond Caldwell, 2013 directed Gail Strips BD Pen may use 6 times a 200units Samuel Calles MD 05/01/2012 Needle/Mini/Ultraf day ine/31G X 3/16" 31G X 5 mm Misc Onetouch use six times a day 200units E10.65 [place] 05/21/2011 Basic/Profile/One or as directed. last Gail John Touch II Test exam 05/29/15 Strips Strips Vitamin C 1 by mouth every day Unknown 500mg Capsules Zandra Root 1 capsule for Unknown 250mg gastroparesis Capsules Lisinopril 1 by mouth every day Unknown 5mg Tablets Amlodipine 1 by mouth every day Unknown Besylate 5mg Tablets History Medications Pantoprazole Sodium 40MG Daily By 30tabs E10Hayley Calles MD 2018 - 40mg Mouth 02/02/2019 Tablets Immunizations CPT Code Status Date Vaccine Reaction Lot # [id number] Given 03/07/2016 Influenza Virus Vaccine, no immediate reaction [id number] Quadrivalent, Split, noted Preservative Free 79949 Given 05/29/2015 Influenza Virus Vaccine, [id number] Quadrivalent, Split, Preservative Free 86094 Given 03/29/2014 Influenza Virus Vaccine, [id number] Quadrivalent, Split, Preservative Free 10116 Given 01/14/2011 Pneumonia Vaccine [id number] 95158 Given 01/14/2011 Tdap - [id number] Tetanus/Diptheria/Acellular Pertussis Vital Signs Date Vital Result Comment 02/05/2019 8:43am Height 69 inches 5'9" Weight 141.00 lb w/ shoes Heart Rate 101 /min BP Systolic Sitting 158 mmHg BP Diastolic Sitting 98 mmHg BMI (Body Mass Index) 20.8 kg/m2 11/24/2018 9:45am Height 69 inches 5'9" Weight 139.00 lb w/ shoes Heart Rate 93 /min BP Systolic Sitting 169 mmHg BP Diastolic Sitting 96 mmHg BMI (Body Mass Index) 20.5 kg/m2 Results Description No Information Available Procedures Date Code Description Status 07/05/2015 996681761 Diabetic Retinal Eye Exam Completed 06/19/2015 316773144 Diabetic Retinal Eye Exam Completed 09/14/2012 840338660 Diabetic Foot Exam Completed 09/03/2012 739479785 Diabetic Foot Exam Completed 07/29/2011 670606758 Diabetic Foot Exam Completed Medical Devices Description No Information Available Encounters Type Date Location Provider Dx Diagnosis Office Visit 02/02/2019 [facility] Christina Tatum, Enrique Smith MD R78.81 Bacteremia 9:39a Hospitalists E10.621 Type 1 diabetes mellitus with foot ulcer L97.519 Non-prs chronic ulcer oth prt right foot w unsp severity I10 Essential (primary) hypertension Office Visit 02/01/2019 9:39a [facility] Enrique Smith MD R78.81 Bacteremia Assoc, Hospitalists E10.621 Type 1 diabetes mellitus with foot ulcer L97.519 Non-prs chronic ulcer oth prt right foot w unsp severity I10 Essential (primary) hypertension Office Visit 01/31/2019 9:38a [facility] Mat E10.621 Type 1 Assoc,amy Patel M.D. diabetes Hospitalists mellitus with foot ulcer L97.519 Non-prs chronic ulcer oth prt right foot w unsp severity I10 Essential (primary) hypertension Office Visit 01/30/2019 [facility] Myles Reynolds L03.115 Cellulitis of 9:38a Assocamy M.D.,FACP right lower limb Hospitalists E10.621 Type 1 diabetes mellitus with foot ulcer L97.519 Non-prs chronic ulcer oth prt right foot w unsp severity I10 Essential (primary) hypertension Office Visit 11/24/2018 [facility] Samuel Calles, E10.65 Type 1 diabetes 10:00a Endocrinology of MD mellitus with Spot Worker hyperglycemia Office Visit 11/02/2018 [facility] Mary E10.65 Type 1 diabetes 10:30a Assoc,amy Razo PA-C mellitus with Hospitalists hyperglycemia N31.9 Neuromuscular dysfunction of bladder, unspecified K31.84 Gastroparesis L94.0 Localized scleroderma [morphea] Office Visit 11/01/2018 [facility] Leslie R73.9 Hyperglycemia, 10:29a Assocamy MD unspecified Hospitalists R00.0 Tachycardia, unspecified R11.2 Nausea with vomiting, unspecified E87.1 Hypo-osmolality and hyponatremia Assessments Date Code Description Provider 02/05/2019 E10.621 Type 1 diabetes mellitus with foot Samuel Calles MD ulcer 02/02/2019 R78.81 Bacteremia Enrique Smith MD 02/02/2019 L97.519 Non-pressure chronic ulcer of other Sindy Norwood NP part of right foot with unspecified severity 02/02/2019 E10.621 Type 1 diabetes mellitus with foot Enrique Smith MD ulcer 02/02/2019 E10.621 Type 1 diabetes mellitus [...] Leslie Maxwell MD Plan of Treatment Future Appointment(s):04/07/2019 1:20 pm - Samuel Calles MD at [facility]03/02/2019 10:30 am - JACINTO Harden-Reneee at [facility]02/08/2019 8:15 am - Ge Reynoso MD at [facility]02/05/2019 - Samuel Calles MDE10.621 Type 1 diabetes mellitus with foot ulcerNew Medication:Onetouch Ultra 2 w/Device - use to test blood glucose 4 times dailyNew Orders:Freestyle Lindsey Pro, Ordered: 02/05/19Follow up:2 weeks with Izabela 8 weeks with StevanInstructions:1. Return in 2 weeks for sensor download. 2. Check blood glucose 4 times daily for the next 60 days.3. Keep your follow-up with orthopedic surgery. 4. Schedule an appointment with [facility] ophthalmology. Functional Status Description No Information Available Mental Status Description No Information Available Referrals Refer to Dr Reason for Referral Status Appt Date Marlon Alvarado DPM diabetic neuropathy with ulceration Sent [address] [place], [place] [id number] [phone]
[2019-03-23 18:04] LABS: ABS Basophils 0.1 10^3/ul (0-0.2); ABS Eosinophils 0.2 10^3/ul (0-0.6); ABS Lymphocytes 1.5 10^3/ul (1.0-4.8); ABS Monocytes 0.4 10^3/ul (0-0.8); ABS Neutrophils 2.5 10^3/ul (1.5-7.7); Eosinophil % 5.4 %; Hematocrit 38 % (42-52); Hemoglobin 12.4 g/dL (14.0-18.0); Lymphocyte % 31.8 %; Mean Corpuscular HGB Conc 33 g/dL (31-36); Mean Corpuscular Hemoglobin 26 pg (27-31); Mean Corpuscular Volume 79 fL (80-94); Nucleated Red Blood Cells % 0.1; Platelet Count 318 10^3/uL (150-450); Red Blood Count 4.79 10^6 /uL (4.18-5.48); Red Cell Distribution Width 13 % (10-15); White Blood Count 4.6 10^3/uL (3.5-10.8)
[2019-03-23 18:35] LABS: Albumin 3.4 g/dL (3.2-5.2); Albumin/Globulin Ratio 1.3 (1-3); BUN/Creatinine Ratio 33.3 (8-20); C Reactive Protein 3.28 mg/L (<8.01); Calcium 8.8 mg/dL (8.6-10.3); EGFR Non-African American 106.6 (>60); Globulin 2.6 g/dL (2-4); Potassium 3.7 mmol/L (3.5-5.0); Total Bilirubin 0.3 mg/dL (0.2-1.0)
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
[2019-03-23 19:06] VITALS: BP 157/99
[2019-03-23] MEDS: Meclizine TAB* 12.5 MG PO ONE (19:09)
[2019-03-23] MEDS: Ketorolac INJ* 30 MG/ML 1 ML VIAL IM ONE (19:09)
== END 2019-03-23 19:04 | disposition home or self-care (01) ==
LOC: ED 16:04
DX: M79.605 Pain in left leg (principal); R42 Dizziness and giddiness; W19.XXXA Unspecified fall, initial encounter; Y92.9 Unspecified place or not applicable; E10.9 Type 1 diabetes mellitus without complications; I10 Essential (primary) hypertension; M06.9 Rheumatoid arthritis, unspecified; I25.10 Atherosclerotic heart disease of native coronary artery without angina pectoris; K21.9 Gastro-esophageal reflux disease without esophagitis; F41.9 Anxiety disorder, unspecified; F43.10 Post-traumatic stress disorder, unspecified; M85.862 Other specified disorders of bone density and structure, left lower leg; M16.0 Bilateral primary osteoarthritis of hip; Z79.4 Long term (current) use of insulin; Z79.899 Other long term (current) drug therapy; Z88.8 Allergy status to other drugs, medicaments and biological substances
CPT/HCPCS: 36415; 80053; 85025; 86140; 96372; 99282; A9270-GY; J1885

== ENCOUNTER 2019-10-28 11:31 | Inpatient (IN) ==
[2019-10-28] MEDS ORDERED: Labetalol IV 5 MG/ML 20 ml VIAL IV PUSH ONE (11:58)
[2019-10-28] MEDS ORDERED: NS 0.9% 1000 ml BAG 1,000 ML IV ONE (11:58)
[2019-10-28 12:30] LABS: ABS Eosinophils 0.5 10^3/ul (0-0.6); ABS Lymphocytes 1.7 10^3/ul (1.0-4.8); ABS Monocytes 0.5 10^3/ul (0-0.8); Eosinophil % 7.4 %; Hematocrit 36 % (42-52); Hemoglobin 11.8 g/dL (14.0-18.0); Lymphocyte % 27.6 %; Mean Corpuscular HGB Conc 33 g/dL (31-36); Mean Corpuscular Hemoglobin 26 pg (27-31); Mean Corpuscular Volume 80 fL (80-94); Mean Platelet Volume 8.3 fL (7.4-10.4); Platelet Count 343 10^3/uL (150-450); Red Blood Count 4.48 10^6 /uL (4.18-5.48); Red Cell Distribution Width 14 % (10-15); White Blood Count 6.2 10^3/uL (3.5-10.8)
[2019-10-28 12:53] LABS: Albumin 3.1 g/dL (3.2-5.2); Albumin/Globulin Ratio 1.1 (1-3); BUN/Creatinine Ratio 25.4 (8-20); Calcium 8.5 mg/dL (8.6-10.3); EGFR African American 80.4 (>60); EGFR Non-African American 66.5 (>60); Globulin 2.7 g/dL (2-4); Potassium 3.7 mmol/L (3.5-5.0); Total Bilirubin 0.4 mg/dL (0.2-1.0); Total Protein 5.8 g/dL (6.4-8.9)
[2019-10-28] MEDS ORDERED: Dextrose 50% Syringe 50 ml 25 GM/50 ML SYRINGE IV PUSH PRN (15:31)
[2019-10-28 15:43] LABS: Urine Appearance Cloudy; Urine Bilirubin Negative (Negative); Urine Blood Negative (Negative); Urine Color Yellow; Urine Glucose 3+(>=500 mg/dL) (Negative); Urine Ketones Negative (Negative); Urine Nitrite Negative (Negative); Urine Protein 3+(>=500 mg/dL) (Negative); Urine Specific Gravity 1.015 (1.010-1.030); Urine Urobilinogen Negative (Negative)
[2019-10-28 15:51] LABS: Urine Bacteria Absent (Absent); Urine Red Blood Cell 1+(3-5/hpf) (Absent); Urine White Blood Cell Trace(0-5/hpf) (Absent)
[2019-10-28 16:29] LABS: Urine Benzodiazepine Screen None Detected (None Detect); Urine Opiates Screen None Detected (None Detect)
[2019-10-28] MEDS: Ondansetron 4 mg VIAL 2 MG/ML 2 ml VIAL IV PRN (17:58)
[2019-10-28 22:04] LABS: Erythrocyte Sed Rate 50 mm/Hr (0-14)
[2019-10-28] MEDS: Insulin GLARGINE 100 un/ml 10 ml VIAL SUBCUT SCH (23:00)
[2019-10-29] MEDS: Ondansetron 4 mg VIAL 2 MG/ML 2 ml VIAL IV PRN ×2 (04:40→09:54)
[2019-10-29 07:07] LABS: Calcium 7.9 mg/dL (8.6-10.3); EGFR African American 86.1 (>60); EGFR Non-African American 71.2 (>60); Potassium 3.8 mmol/L (3.5-5.0)
[2019-10-29 15:13] LABS: Urine Creatinine Concentration 45.7 mg/dL
[2019-10-29] MEDS: Insulin GLARGINE 100 un/ml 10 ml VIAL SUBCUT SCH (21:28)
[2019-10-30] MEDS: Ondansetron 4 mg VIAL 2 MG/ML 2 ml VIAL IV PRN ×2 (00:58→08:43)
[2019-10-30 05:42] LABS: ABS Basophils 0.1 10^3/ul (0-0.2); ABS Eosinophils 0.5 10^3/ul (0-0.6); ABS Lymphocytes 1.9 10^3/ul (1.0-4.8); ABS Monocytes 0.5 10^3/ul (0-0.8); Eosinophil % 8.4 %; Hematocrit 34 % (42-52); Hemoglobin 11.4 g/dL (14.0-18.0); Lymphocyte % 32.6 %; Mean Corpuscular HGB Conc 33 g/dL (31-36); Mean Corpuscular Hemoglobin 27 pg (27-31); Mean Corpuscular Volume 80 fL (80-94); Platelet Count 298 10^3/uL (150-450); Red Blood Count 4.29 10^6 /uL (4.18-5.48); Red Cell Distribution Width 14 % (10-15); White Blood Count 5.9 10^3/uL (3.5-10.8)
[2019-10-30 06:03] LABS: BUN/Creatinine Ratio 12.7 (8-20); C Reactive Protein 2.77 mg/L (<8.01); Calcium 8.1 mg/dL (8.6-10.3); EGFR African American 83.6 (>60); EGFR Non-African American 69.1 (>60); Potassium 4.1 mmol/L (3.5-5.0)
[2019-10-30] MEDS ORDERED: Dextrose 50% Syringe 50 ml 25 GM/50 ML SYRINGE IV PUSH PRN ×2 (07:32→11:06)
[2019-10-30] MEDS ORDERED: LORazepam 2 mg VIAL 1 ml IV PUSH ONE (11:56)
[2019-10-30] MEDS ORDERED: Lorazepam PYXIS KEY PRN (11:56)
[2019-10-30] MEDS: Insulin GLARGINE 100 un/ml 10 ml VIAL SUBCUT SCH (20:43)
[2019-10-30 23:32] LABS: TSH (Thyroid Stimulating Horm) 5.43 mcIU/mL (0.34-5.60)
[2019-10-31 06:55] LABS: HDL Cholesterol 56.8 mg/dL
[2019-10-31] MEDS: Insulin GLARGINE 100 un/ml 10 ml VIAL SUBCUT SCH (20:55)
[2019-11-01] MEDS ORDERED: hydrALAZINE 20 mg/ml 1 ML Vial IV IV SLOW PU PRN (03:02)
[2019-11-01 06:36] LABS: ABS Basophils 0.1 10^3/ul (0-0.2); ABS Eosinophils 0.4 10^3/ul (0-0.6); ABS Monocytes 0.5 10^3/ul (0-0.8); Eosinophil % 6.5 %; Hematocrit 38 % (42-52); Hemoglobin 12.8 g/dL (14.0-18.0); Lymphocyte % 32.2 %; Mean Corpuscular HGB Conc 34 g/dL (31-36); Mean Corpuscular Hemoglobin 27 pg (27-31); Mean Corpuscular Volume 80 fL (80-94); Mean Platelet Volume 8.1 fL (7.4-10.4); Platelet Count 374 10^3/uL (150-450); Red Blood Count 4.78 10^6 /uL (4.18-5.48); Red Cell Distribution Width 14 % (10-15); White Blood Count 6.2 10^3/uL (3.5-10.8)
[2019-11-01 06:53] LABS: BUN/Creatinine Ratio 16.5 (8-20); Calcium 8.5 mg/dL (8.6-10.3); EGFR African American 80.8 (>60); EGFR Non-African American 66.8 (>60); Potassium 4.2 mmol/L (3.5-5.0)
[2019-11-01 07:12] LABS: Free T3 3.1 pg/mL (2.5-3.9)
[2019-11-01 07:18] LABS: Thyroid Peroxidase Antibodies 1.62 IU/mL (<9)
[2019-11-01] MEDS: Ondansetron 4 mg VIAL 2 MG/ML 2 ml VIAL IV PRN (07:36)
[2019-11-01] MEDS: Insulin GLARGINE 100 un/ml 10 ml VIAL SUBCUT SCH (21:05)
[2019-11-02 06:11] LABS: ABS Basophils 0.1 10^3/ul (0-0.2); ABS Eosinophils 0.3 10^3/ul (0-0.6); ABS Monocytes 0.5 10^3/ul (0-0.8); Eosinophil % 5.4 %; Hematocrit 36 % (42-52); Lymphocyte % 31.8 %; Mean Corpuscular HGB Conc 33 g/dL (31-36); Mean Corpuscular Hemoglobin 26 pg (27-31); Mean Corpuscular Volume 79 fL (80-94); Mean Platelet Volume 8.3 fL (7.4-10.4); Nucleated Red Blood Cells % 0.1; Platelet Count 356 10^3/uL (150-450); Red Blood Count 4.54 10^6 /uL (4.18-5.48); Red Cell Distribution Width 14 % (10-15); White Blood Count 6.1 10^3/uL (3.5-10.8)
[2019-11-02 06:23] LABS: BUN/Creatinine Ratio 17.1 (8-20); Calcium 8.2 mg/dL (8.6-10.3); Potassium 4.3 mmol/L (3.5-5.0)
[2019-11-02 15:17] VITALS: BP 147/87
== END 2019-11-02 15:42 | disposition home or self-care (01) | DRG 305 ==
LOC: ED 11:31 → MEDTELE 11:31
PROVIDERS: ADMIT Internal Medicine; ATTEND Internal Medicine

== ENCOUNTER 2021-01-31 15:23 | Inpatient (IN) ==
[2021-01-31 16:54] LABS: ABS Basophils 0.1 10^3/ul (0-0.2); ABS Eosinophils 0.2 10^3/ul (0-0.6); ABS Lymphocytes 1.5 10^3/ul (1.0-4.8); ABS Monocytes 0.5 10^3/ul (0-0.8); ABS Neutrophils 4.2 10^3/ul (1.5-7.7); Hematocrit 39 % (42-52); Hemoglobin 12.3 g/dL (14.0-18.0); Lymphocyte % 22.8 %; Mean Corpuscular HGB Conc 32 g/dL (31-36); Mean Corpuscular Hemoglobin 27 pg (27-31); Mean Corpuscular Volume 83 fL (80-94); Mean Platelet Volume 8.9 fL (7.4-10.4); Platelet Count 306 10^3/uL (150-450); Red Blood Count 4.64 10^6 /uL (4.18-5.48); Red Cell Distribution Width 14 % (10-15); White Blood Count 6.4 10^3/uL (3.5-10.8)
[2021-01-31 17:12] LABS: ALT 29 U/L (7-52); AST 25 U/L (13-39); Albumin 4.5 g/dL (3.2-5.2); Albumin/Globulin Ratio 1.3 (1-3); Alkaline Phosphatase 132 U/L (35-149); Anion Gap 9 mmol/L (2-11); Blood Urea Nitrogen 36 mg/dL (6-24); C Reactive Protein < 1.00 mg/L (<8.01); CO2 Carbon Dioxide 28 mmol/L (22-32); Calcium 9.3 mg/dL (8.6-10.3); Chloride 99 mmol/L (101-111); EGFR Non-African American 27.2 (>60); Globulin 3.4 g/dL (2-4); Glucose 96 mg/dL (70-100); Lipase 14 U/L (11.0-82.0); Magnesium 2.7 mg/dL (1.9-2.7); Sodium 136 mmol/L (135-145); Total Protein 7.9 g/dL (6.4-8.9)
[2021-01-31] MEDS ORDERED: NS 0.9% 1000 ml BAG 1,000 ML IV ONE (20:48)
[2021-01-31] MEDS ORDERED: Ondansetron 4 mg VIAL 2 MG/ML 2 ml VIAL IV ONE (20:49)
[2021-02-01] MEDS ORDERED: NS 0.9% 1000 ml BAG 1,000 ML IV ONE (00:09)
[2021-02-01] MEDS ORDERED: Ondansetron 4 mg VIAL 2 MG/ML 2 ml VIAL IV ONE ×2 (00:09→07:57)
[2021-02-01] MEDS ORDERED: Pantoprazole VIAL 40 MG VIAL IV ONE (02:57)
[2021-02-01] MEDS ORDERED: NS 0.9% IVPB ONE (05:51)
[2021-02-01] MEDS ORDERED: ERYTHROMYCIN LACTOBIONATE IVPB ONE (05:51)
[2021-02-01] MEDS ORDERED: Lactated Ringers 1000 ml BAG 500 ML IV SCH (06:00)
[2021-02-01] MEDS ORDERED: Azithromycin 500 MG IV - ED ONCE IVPB ONE (06:43)
[2021-02-01 06:58] LABS: Hematocrit 35 % (42-52); Hemoglobin 11.6 g/dL (14.0-18.0); Mean Corpuscular HGB Conc 33 g/dL (31-36); Mean Corpuscular Hemoglobin 27 pg (27-31); Mean Corpuscular Volume 82 fL (80-94); Mean Platelet Volume 9.2 fL (7.4-10.4); Platelet Count 248 10^3/uL (150-450); Red Blood Count 4.24 10^6 /uL (4.18-5.48); Red Cell Distribution Width 14 % (10-15); White Blood Count 6.2 10^3/uL (3.5-10.8)
[2021-02-01 07:06] LABS: Albumin/Globulin Ratio 1.4 (1-3); Calcium 8.7 mg/dL (8.6-10.3); Direct Bilirubin 0.1 mg/dL (0.03-0.18); EGFR African American 36.5 (>60); EGFR Non-African American 30.1 (>60); Globulin 2.8 g/dL (2-4); Indirect Bilirubin 0.5 mg/dL (0.3-1.0); Magnesium 2.4 mg/dL (1.9-2.7); Phosphorus 4.1 mg/dL (2.5-5.0); Potassium 3.9 mmol/L (3.5-5.0); Total Bilirubin 0.6 mg/dL (0.2-1.0); Total Protein 6.8 g/dL (6.4-8.9)
[2021-02-01 11:46] LABS: Urine Appearance Clear; Urine Bilirubin Negative (Negative); Urine Blood Negative (Negative); Urine Color Yellow; Urine Glucose Negative (Negative); Urine Ketones Trace (Negative); Urine Nitrite Negative (Negative); Urine Protein 2+(100 mg/dL) (Negative); Urine Specific Gravity 1.015 (1.002-1.030); Urine Urobilinogen Negative (Negative)
[2021-02-01 11:50] LABS: Urine Bacteria Absent (Absent); Urine Red Blood Cell Trace(0-2/hpf) (Absent); Urine White Blood Cell 1+(6-10/hpf) (Absent)
[2021-02-01] MEDS ORDERED: NS 0.9% 1000 ml BAG 1,000 ML IV SCH (13:45)
[2021-02-01] MEDS ORDERED: Ondansetron 4 mg VIAL 2 MG/ML 2 ml VIAL IV PRN (15:29)
[2021-02-01] MEDS ORDERED: DOMPERIDONE 10 MG PO SCH (21:00)
[2021-02-02 06:08] LABS: ABS Basophils 0.1 10^3/ul (0-0.2); ABS Eosinophils 0.3 10^3/ul (0-0.6); ABS Monocytes 0.4 10^3/ul (0-0.8); ABS Neutrophils 1.9 10^3/ul (1.5-7.7); Hematocrit 31 % (42-52); Lymphocyte % 42.5 %; Mean Corpuscular HGB Conc 33 g/dL (31-36); Mean Corpuscular Hemoglobin 27 pg (27-31); Mean Corpuscular Volume 82 fL (80-94); Mean Platelet Volume 8.6 fL (7.4-10.4); Platelet Count 218 10^3/uL (150-450); Red Blood Count 3.72 10^6 /uL (4.18-5.48); Red Cell Distribution Width 14 % (10-15); White Blood Count 4.7 10^3/uL (3.5-10.8)
[2021-02-02 06:15] LABS: Albumin 3.5 g/dL (3.2-5.2); Albumin/Globulin Ratio 1.5 (1-3); Calcium 8.3 mg/dL (8.6-10.3); EGFR African American 48.6 (>60); EGFR Non-African American 40.2 (>60); Globulin 2.4 g/dL (2-4); Potassium 4.2 mmol/L (3.5-5.0); Total Bilirubin 0.6 mg/dL (0.2-1.0); Total Protein 5.9 g/dL (6.4-8.9)
[2021-02-03 06:33] LABS: ABS Basophils 0.1 10^3/ul (0-0.2); ABS Eosinophils 0.4 10^3/ul (0-0.6); ABS Lymphocytes 1.9 10^3/ul (1.0-4.8); ABS Monocytes 0.4 10^3/ul (0-0.8); ABS Neutrophils 2.2 10^3/ul (1.5-7.7); Eosinophil % 7.3 %; Hematocrit 32 % (42-52); Hemoglobin 10.2 g/dL (14.0-18.0); Lymphocyte % 38.1 %; Mean Corpuscular HGB Conc 32 g/dL (31-36); Mean Corpuscular Hemoglobin 27 pg (27-31); Mean Corpuscular Volume 83 fL (80-94); Mean Platelet Volume 8.7 fL (7.4-10.4); Platelet Count 213 10^3/uL (150-450); Red Blood Count 3.85 10^6 /uL (4.18-5.48); Red Cell Distribution Width 14 % (10-15)
[2021-02-03 06:50] LABS: Calcium 8.3 mg/dL (8.6-10.3); EGFR African American 48.9 (>60); EGFR Non-African American 40.4 (>60); Potassium 4.4 mmol/L (3.5-5.0)
[2021-02-03] MEDS ORDERED: Ondansetron ODT 4 mg TAB 4 MG TAB SL PRN (09:57)
[2021-02-03 11:56] VITALS: BP 159/91
== END 2021-02-03 14:55 | disposition home or self-care (01) | DRG 74 ==
LOC: ED 15:23 → MEDTELE 15:23 → SUATTDRO 02-01 05:25 → MEDTELE 02-01 09:48
PROVIDERS: ADMIT Internal Medicine; ATTEND Internal Medicine

== ENCOUNTER 2021-07-11 02:21 | Inpatient (IN) ==
[2021-07-11] MEDS ORDERED: Ondansetron 4 mg VIAL 2 MG/ML 2 ml VIAL IV ONE (02:49)
[2021-07-11 03:30] LABS: Hematocrit 34 % (42-52); Hemoglobin 11.1 g/dL (14.0-18.0); Mean Corpuscular HGB Conc 33 g/dL (31-36); Mean Corpuscular Hemoglobin 26 pg (27-31); Mean Corpuscular Volume 80 fL (80-94); Mean Platelet Volume 8.7 fL (7.4-10.4); Platelet Count 389 10^3/uL (150-450); Red Blood Count 4.22 10^6 /uL (4.18-5.48); Red Cell Distribution Width 14 % (10-15); White Blood Count 21.9 10^3/uL (3.5-10.8)
[2021-07-11 03:50] LABS: Albumin 3.8 g/dL (3.2-5.2); Albumin/Globulin Ratio 1.4 (1-3); Globulin 2.8 g/dL (2-4); Magnesium 1.9 mg/dL (1.9-2.7); Potassium 4.5 mmol/L (3.5-5.0); Total Bilirubin 0.6 mg/dL (0.2-1.0); Total Protein 6.6 g/dL (6.4-8.9); eGFR CKD-EPI 34.1 (>60)
[2021-07-11] MEDS ORDERED: Lactated Ringers 1000 ml BAG 1,000 ML IV ONE ×2 (04:06→04:36)
[2021-07-11 04:09] LABS: ABS Basophils 0.1 10^3/ul (0-0.2); ABS Eosinophils 0.1 10^3/ul (0-0.6); ABS Lymphocytes 0.7 10^3/ul (1.0-4.8); ABS Neutrophils 20.1 10^3/ul (1.5-7.7); Eosinophil % 0.3 %; Lymphocyte % 3.2 %
[2021-07-11] MEDS ORDERED: Iodixanol (CONTRAST) 320 MG/ML 100 ML SDV IV ONE (05:21)
[2021-07-11] MEDS ORDERED: Lactated Ringers 1000 ml BAG 1,000 ML IV SCH (10:00)
[2021-07-11] MEDS ORDERED: ERYTHROMYCIN LACTOBIONATE IVPB SCH (15:00)
[2021-07-11] MEDS ORDERED: NS 0.9% IVPB SCH (15:00)
[2021-07-11] MEDS ORDERED: Erythromycin Lactobionate IV 250 MG in NS 0.9% 100 ml BAG 100 ML IVPB SCH (15:00)
[2021-07-11] MEDS: Ondansetron 4 mg VIAL 2 MG/ML 2 ml VIAL IV PRN (19:40)
[2021-07-12] MEDS: ERYTHROMYCIN LACTOBIONATE IVPB SCH ×3 (01:38→17:32)
[2021-07-12] MEDS: NS 0.9% IVPB SCH ×3 (01:38→17:32)
[2021-07-12] MEDS: Ondansetron 4 mg VIAL 2 MG/ML 2 ml VIAL IV PRN ×3 (02:57→21:49)
[2021-07-12 06:04] LABS: ABS Basophils 0.1 10^3/ul (0-0.2); ABS Eosinophils 0.4 10^3/ul (0-0.6); ABS Lymphocytes 2.4 10^3/ul (1.0-4.8); ABS Monocytes 0.5 10^3/ul (0-0.8); ABS Neutrophils 4.1 10^3/ul (1.5-7.7); Hematocrit 30 % (42-52); Hemoglobin 9.9 g/dL (14.0-18.0); Mean Corpuscular HGB Conc 33 g/dL (31-36); Mean Corpuscular Hemoglobin 27 pg (27-31); Mean Corpuscular Volume 81 fL (80-94); Mean Platelet Volume 9.3 fL (7.4-10.4); Platelet Count 313 10^3/uL (150-450); Red Blood Count 3.67 10^6 /uL (4.18-5.48); Red Cell Distribution Width 14 % (10-15); White Blood Count 7.5 10^3/uL (3.5-10.8)
[2021-07-12 06:19] LABS: Calcium 8.3 mg/dL (8.6-10.3); Potassium 4.7 mmol/L (3.5-5.0)
[2021-07-12 06:25] LABS: eGFR CKD-EPI 38.7 (>60)
[2021-07-12] MEDS: Aspirin EC 81 mg TAB.EC (enteric coated) PO SCH (08:35)
[2021-07-12] MEDS: Bacitracin OINTMENT TUBE TOPICAL SCH (08:45)
[2021-07-12] MEDS ORDERED: Dextrose 50% Syringe 50 ml 25 GM/50 ML SYRINGE IV PUSH PRN (09:21)
[2021-07-12] MEDS: Lactated Ringers 1000 ml BAG 1,000 ML IV SCH (19:12)
[2021-07-13] MEDS: Ondansetron 4 mg VIAL 2 MG/ML 2 ml VIAL IV PRN ×4 (02:02→22:18)
[2021-07-13] MEDS: NS 0.9% IVPB SCH ×3 (02:02→17:12)
[2021-07-13] MEDS: ERYTHROMYCIN LACTOBIONATE IVPB SCH ×3 (02:02→17:12)
[2021-07-13] MEDS: Lactated Ringers 1000 ml BAG 1,000 ML IV SCH (05:56)
[2021-07-13 06:53] LABS: ABS Eosinophils 0.4 10^3/ul (0-0.6); ABS Lymphocytes 1.5 10^3/ul (1.0-4.8); ABS Monocytes 0.4 10^3/ul (0-0.8); ABS Neutrophils 4.2 10^3/ul (1.5-7.7); Eosinophil % 5.8 %; Hematocrit 29 % (42-52); Hemoglobin 9.3 g/dL (14.0-18.0); Lymphocyte % 23.5 %; Mean Corpuscular HGB Conc 33 g/dL (31-36); Mean Corpuscular Hemoglobin 27 pg (27-31); Mean Corpuscular Volume 82 fL (80-94); Mean Platelet Volume 8.5 fL (7.4-10.4); Platelet Count 282 10^3/uL (150-450); Red Blood Count 3.49 10^6 /uL (4.18-5.48); Red Cell Distribution Width 13 % (10-15); White Blood Count 6.5 10^3/uL (3.5-10.8)
[2021-07-13 07:12] LABS: Calcium 8.6 mg/dL (8.6-10.3); eGFR CKD-EPI 44.1 (>60)
[2021-07-13 07:14] LABS: Potassium 5.2 mmol/L (3.5-5.0)
[2021-07-13] MEDS: Aspirin EC 81 mg TAB.EC (enteric coated) PO SCH (09:57)
[2021-07-13] MEDS: Bacitracin OINTMENT TUBE TOPICAL SCH (09:58)
[2021-07-14] MEDS: ERYTHROMYCIN LACTOBIONATE IVPB SCH (01:56)
[2021-07-14] MEDS: NS 0.9% IVPB SCH (01:56)
[2021-07-14] MEDS: Ondansetron 4 mg VIAL 2 MG/ML 2 ml VIAL IV PRN ×2 (02:00→09:06)
[2021-07-14 07:43] LABS: ABS Eosinophils 0.4 10^3/ul (0-0.6); ABS Lymphocytes 1.6 10^3/ul (1.0-4.8); ABS Monocytes 0.4 10^3/ul (0-0.8); ABS Neutrophils 3.7 10^3/ul (1.5-7.7); Eosinophil % 6.7 %; Hematocrit 29 % (42-52); Hemoglobin 9.7 g/dL (14.0-18.0); Lymphocyte % 25.5 %; Mean Corpuscular HGB Conc 33 g/dL (31-36); Mean Corpuscular Hemoglobin 27 pg (27-31); Mean Corpuscular Volume 82 fL (80-94); Mean Platelet Volume 8.8 fL (7.4-10.4); Platelet Count 267 10^3/uL (150-450); Red Cell Distribution Width 14 % (10-15); White Blood Count 6.1 10^3/uL (3.5-10.8)
[2021-07-14 07:56] LABS: Calcium 8.6 mg/dL (8.6-10.3); eGFR CKD-EPI 50.9 (>60)
[2021-07-14 08:00] LABS: Potassium 5.1 mmol/L (3.5-5.0)
[2021-07-14] MEDS: Aspirin EC 81 mg TAB.EC (enteric coated) PO SCH (09:05)
[2021-07-14] MEDS: Bacitracin OINTMENT TUBE TOPICAL SCH (09:05)
[2021-07-15] MEDS: Aspirin EC 81 mg TAB.EC (enteric coated) PO SCH (07:21)
[2021-07-15] MEDS: Bacitracin OINTMENT TUBE TOPICAL SCH (07:22)
[2021-07-15 09:00] LABS: % Iron Saturation 13 % (15-55); Iron 38 ug/dL (50-212); Total Iron Binding Capacity 297 mcg/dL (250-450); Transferrin 212 mg/dL (203-362); Unsaturated Iron Binding 259 ug/dL
[2021-07-15 11:22] VITALS: BP 151/84
== END 2021-07-15 14:55 | disposition home or self-care (01) | DRG 73 ==
LOC: EDHOLD 02:21 → ED 02:21 → MED 12:15 → SUATTDRO 07-12 16:30
PROVIDERS: ADMIT Student in an Organized Health Care Education/Training Program; ATTEND Hospitalist

== ENCOUNTER 2023-05-15 20:32 | Inpatient (IN) ==
[2023-05-15 21:18] LABS: ABS Basophils 0.1 10^3/uL (0.0-0.1); ABS Eosinophils 0.3 10^3/uL (0.0-0.5); ABS Lymphocytes 1.2 10^3/uL (1.0-4.8); ABS Monocytes 0.8 10^3/uL (0.0-1.1); ABS Neutrophils 4.6 10^3/uL (1.5-7.6); Eosinophil % 4.9 %; Hematocrit 31.9 % (38-53); Hemoglobin 10.5 g/dL (13.2-16.3); Lymphocyte % 16.8 %; Mean Corpuscular Hemoglobin 25.2 pg (27-33); Mean Corpuscular Volume 76.4 fL (80-97); Mean Platelet Volume 8.3 fL (7.5-11.2); Platelet Count 277 10^3/uL (150-450); Red Blood Count 4.18 10^6/uL (4.06-5.63); Red Cell Distribution Width 14.8 % (12-17); White Blood Count 7.1 10^3/uL (3.6-10.2)
[2023-05-15 21:36] LABS: Albumin 4.4 g/dL (3.2-5.2); Albumin/Globulin Ratio 1.3 (1-3); Calcium 9.2 mg/dL (8.6-10.3); Creatinine, Serum 5.49 mg/dL (0.67-1.17); Globulin 3.3 g/dL (2-4); Magnesium 2.6 mg/dL (1.9-2.7); Potassium 4.3 mmol/L (3.5-5.0); Total Bilirubin 0.4 mg/dL (0.2-1.0); Total Protein 7.7 g/dL (6.4-8.9); eGFR CKD-EPI 12.5 (>60)
[2023-05-15] MEDS ORDERED: Furosemide 40 mg/4 ml IV VIAL IV SLOW PU ONE (21:54)
[2023-05-15 22:51] LABS: High Sensitivity Troponin 1 Hr 9 pg/mL (<20)
[2023-05-16] MEDS: Heparin 5000 UNITS/ML 1 mL VIAL SUBCUT SCH ×3 (00:41→20:51)
[2023-05-16] MEDS: Ondansetron 4 mg VIAL 2 MG/ML 2 ml VIAL IV PRN ×2 (00:44→08:51)
[2023-05-16] MEDS ORDERED: niCARdipine 0.1MG/ML IVPREMIX 20 MG/200 ML BAG IV ONE (03:41)
[2023-05-16] MEDS ORDERED: Insulin LISPRO FOR INSULIN PUMP SUBCUT SCH (04:00)
[2023-05-16] MEDS ORDERED: niCARdipine 0.1MG/ML IVPREMIX 20 MG/200 ML BAG IV SCH (04:00)
[2023-05-16 04:42] LABS: ABS Basophils 0.1 10^3/uL (0.0-0.1); ABS Eosinophils 0.3 10^3/uL (0.0-0.5); ABS Monocytes 0.7 10^3/uL (0.0-1.1); ABS Neutrophils 3.2 10^3/uL (1.5-7.6); Eosinophil % 6.4 %; Hematocrit 29.1 % (38-53); Hemoglobin 9.6 g/dL (13.2-16.3); Lymphocyte % 18.9 %; Mean Corpuscular Hemoglobin 25.3 pg (27-33); Mean Corpuscular Hgb Conc 32.9 g/dL (31-36); Mean Corpuscular Volume 76.9 fL (80-97); Mean Platelet Volume 8.1 fL (7.5-11.2); Nucleated Red Blood Cells % 0.1 %/100WBC (0.0-0.8); Platelet Count 237 10^3/uL (150-450); Red Blood Count 3.78 10^6/uL (4.06-5.63); Red Cell Distribution Width 14.6 % (12-17); White Blood Count 5.2 10^3/uL (3.6-10.2)
[2023-05-16 04:58] LABS: Creatinine, Serum 5.74 mg/dL (0.67-1.17); Magnesium 2.6 mg/dL (1.9-2.7); Potassium 3.9 mmol/L (3.5-5.0); eGFR CKD-EPI 11.8 (>60)
[2023-05-16] MEDS: DOMPERIDONE 10 MG PO SCH ×4 (09:52→21:02)
[2023-05-16] MEDS: Heparin 1,000 UNIT/ML 10 ml (10,000 UNITS) CATHLAB/DIALYSIS DIALYSIS SCH (12:21)
[2023-05-16] MEDS: Bumetanide IV 0.25 MG/ML 4 ml VIAL (1 mg) IV SLOW PU SCH (20:56)
[2023-05-17] MEDS: Ondansetron 4 mg VIAL 2 MG/ML 2 ml VIAL IV PRN ×3 (01:03→18:20)
[2023-05-17 05:10] LABS: ABS Basophils 0.1 10^3/uL (0.0-0.1); ABS Eosinophils 0.3 10^3/uL (0.0-0.5); ABS Lymphocytes 1.1 10^3/uL (1.0-4.8); ABS Monocytes 0.8 10^3/uL (0.0-1.1); ABS Neutrophils 3.4 10^3/uL (1.5-7.6); ABS Nucleated RBC 0.01 10^3/ul; Hematocrit 33.2 % (38-53); Hemoglobin 10.9 g/dL (13.2-16.3); Lymphocyte % 19.3 %; Mean Corpuscular Hemoglobin 25.3 pg (27-33); Mean Corpuscular Hgb Conc 32.7 g/dL (31-36); Mean Corpuscular Volume 77.2 fL (80-97); Mean Platelet Volume 8.3 fL (7.5-11.2); Nucleated Red Blood Cells % 0.1 %/100WBC (0.0-0.8); Platelet Count 257 10^3/uL (150-450); Red Cell Distribution Width 14.7 % (12-17); White Blood Count 5.7 10^3/uL (3.6-10.2)
[2023-05-17 05:25] LABS: Calcium 9.3 mg/dL (8.6-10.3); Creatinine, Serum 5.53 mg/dL (0.67-1.17); Magnesium 2.6 mg/dL (1.9-2.7); Potassium 4.2 mmol/L (3.5-5.0); eGFR CKD-EPI 12.4 (>60)
[2023-05-17] MEDS: Bumetanide IV 0.25 MG/ML 4 ml VIAL (1 mg) IV SLOW PU SCH ×2 (07:58→21:28)
[2023-05-17] MEDS: Heparin 5000 UNITS/ML 1 mL VIAL SUBCUT SCH ×2 (07:59→21:28)
[2023-05-17] MEDS: DOMPERIDONE 10 MG PO SCH (10:32)
[2023-05-17] MEDS: Heparin 1,000 UNIT/ML 10 ml (10,000 UNITS) CATHLAB/DIALYSIS DIALYSIS SCH (12:26)
[2023-05-17] MEDS ORDERED: fentaNYL 100 mcg/2 ml 50 MCG/ML VIAL ONE (13:13)
[2023-05-17] MEDS: fentaNYL 100 mcg/2 ml 50 MCG/ML VIAL IV SLOW PU PRN ×2 (13:16→18:20)
[2023-05-17] MEDS ORDERED: DOMPERIDONE 10 MG PO SCH (21:00)
[2023-05-18 04:55] LABS: ABS Basophils 0.1 10^3/uL (0.0-0.1); ABS Eosinophils 0.3 10^3/uL (0.0-0.5); ABS Lymphocytes 1.2 10^3/uL (1.0-4.8); ABS Nucleated RBC 0.01 10^3/ul; Eosinophil % 3.4 %; Hematocrit 35.3 % (38-53); Hemoglobin 11.4 g/dL (13.2-16.3); Lymphocyte % 16.1 %; Mean Corpuscular Hgb Conc 32.3 g/dL (31-36); Mean Corpuscular Volume 77.6 fL (80-97); Mean Platelet Volume 8.5 fL (7.5-11.2); Nucleated Red Blood Cells % 0.1 %/100WBC (0.0-0.8); Platelet Count 290 10^3/uL (150-450); Red Blood Count 4.55 10^6/uL (4.06-5.63); Red Cell Distribution Width 15.2 % (12-17); White Blood Count 7.6 10^3/uL (3.6-10.2)
[2023-05-18 05:11] LABS: Calcium 9.5 mg/dL (8.6-10.3); Creatinine, Serum 7.1 mg/dL (0.67-1.17); Magnesium 2.7 mg/dL (1.9-2.7); Potassium 4.7 mmol/L (3.5-5.0); eGFR CKD-EPI 9.2 (>60)
[2023-05-18] MEDS: Ondansetron 4 mg VIAL 2 MG/ML 2 ml VIAL IV PRN ×2 (06:12→18:10)
[2023-05-18] MEDS: Bumetanide IV 0.25 MG/ML 4 ml VIAL (1 mg) IV SLOW PU SCH ×2 (08:31→22:07)
[2023-05-18] MEDS: Heparin 1,000 UNIT/ML 10 ml (10,000 UNITS) CATHLAB/DIALYSIS DIALYSIS SCH (08:43)
[2023-05-18] MEDS: Heparin 5000 UNITS/ML 1 mL VIAL SUBCUT SCH ×2 (09:27→21:37)
[2023-05-18] MEDS ORDERED: Insulin LISPRO FOR INSULIN PUMP SUBCUT SCH (16:00)
[2023-05-19] MEDS: Ondansetron 4 mg VIAL 2 MG/ML 2 ml VIAL IV PRN (05:59)
[2023-05-19] MEDS: Heparin 5000 UNITS/ML 1 mL VIAL SUBCUT SCH (09:09)
[2023-05-19] MEDS: Bumetanide IV 0.25 MG/ML 4 ml VIAL (1 mg) IV SLOW PU SCH (09:10)
[2023-05-19 09:33] VITALS: BP 123/72
[2023-05-19] MEDS: Heparin 1,000 UNIT/ML 10 ml (10,000 UNITS) CATHLAB/DIALYSIS DIALYSIS SCH (11:36)
[2023-05-23] MEDS ORDERED: cloNIDine 0.3 MG PATCH 0.3 MG/24 HR 7 DAY PATCH TRANSDERM SCH (09:00)
== END 2023-05-19 12:40 | disposition home or self-care (01) | DRG 640 ==
LOC: ED 20:32 → EDHOLD 23:45 → ICU 05-16 01:17 → SSU 05-18 13:31
PROVIDERS: ADMIT Student in an Organized Health Care Education/Training Program; ATTEND Student in an Organized Health Care Education/Training Program

== ENCOUNTER 2023-05-24 19:01 | Inpatient (IN) ==
[2023-05-24 20:17] LABS: Venous Bicarbonate HCO3 26.6 mmol/L (24-28)
[2023-05-24 20:26] LABS: ABS Basophils 0.1 10^3/uL (0.0-0.1); ABS Eosinophils 0.5 10^3/uL (0.0-0.5); ABS Lymphocytes 1.1 10^3/uL (1.0-4.8); ABS Monocytes 0.7 10^3/uL (0.0-1.1); ABS Neutrophils 7.1 10^3/uL (1.5-7.6); ABS Nucleated RBC 0.01 10^3/ul; Eosinophil % 4.9 %; Hematocrit 31.5 % (38-53); Hemoglobin 10.3 g/dL (13.2-16.3); Lymphocyte % 11.2 %; Mean Corpuscular Hemoglobin 25.2 pg (27-33); Mean Corpuscular Hgb Conc 32.6 g/dL (31-36); Mean Corpuscular Volume 77.4 fL (80-97); Mean Platelet Volume 8.4 fL (7.5-11.2); Nucleated Red Blood Cells % 0.1 %/100WBC (0.0-0.8); Platelet Count 362 10^3/uL (150-450); Red Blood Count 4.07 10^6/uL (4.06-5.63); Red Cell Distribution Width 15.3 % (12-17); White Blood Count 9.5 10^3/uL (3.6-10.2)
[2023-05-24 20:46] LABS: Albumin 4.1 g/dL (3.2-5.2); Albumin/Globulin Ratio 1.1 (1-3); C Reactive Protein 21.85 mg/L (<8.01); Calcium 9.2 mg/dL (8.6-10.3); Creatinine, Serum 5.49 mg/dL (0.67-1.17); Globulin 3.6 g/dL (2-4); Potassium 4.2 mmol/L (3.5-5.0); Total Bilirubin 0.3 mg/dL (0.2-1.0); Total Protein 7.7 g/dL (6.4-8.9); eGFR CKD-EPI 12.5 (>60)
[2023-05-24] MEDS: Heparin 1,000 UNIT/ML 10 ml (10,000 UNITS) CATHLAB/DIALYSIS DIALYSIS SCH (21:49)
[2023-05-25] MEDS ORDERED: cloNIDine 0.3 MG PATCH 0.3 MG/24 HR 7 DAY PATCH TRANSDERM SCH
[2023-05-25] MEDS: Heparin 1,000 UNIT/ML 10 ml (10,000 UNITS) CATHLAB/DIALYSIS DIALYSIS SCH ×4 (00:38→21:21)
[2023-05-25] MEDS: Ondansetron 4 mg VIAL 2 MG/ML 2 ml VIAL IV PRN ×2 (01:48→19:50)
[2023-05-25] MEDS ORDERED: INSULIN PUMP CONTROLLER SCH (08:04)
[2023-05-25] MEDS: DOMPERIDONE 10 MG PO SCH ×4 (08:33→20:58)
[2023-05-25] MEDS ORDERED: INSULIN ASPART SUBCUT SCH (09:00)
[2023-05-25] MEDS ORDERED: BUMETANIDE 1 MG PO SCH (09:00)
[2023-05-25] MEDS: Cholecalciferol (VIT D3) 1,000 unit TAB PO SCH (11:38)
[2023-05-26 05:36] VITALS: BP 130/85
[2023-05-26 07:36] LABS: ABS Basophils 0.1 10^3/uL (0.0-0.1); ABS Lymphocytes 1.1 10^3/uL (1.0-4.8); ABS Monocytes 0.5 10^3/uL (0.0-1.1); ABS Neutrophils 7.1 10^3/uL (1.5-7.6); Eosinophil % 0.1 %; Hematocrit 40.3 % (38-53); Hemoglobin 13.1 g/dL (13.2-16.3); Lymphocyte % 12.1 %; Mean Corpuscular Hemoglobin 25.9 pg (27-33); Mean Corpuscular Hgb Conc 32.5 g/dL (31-36); Mean Corpuscular Volume 79.6 fL (80-97); Mean Platelet Volume 8.4 fL (7.5-11.2); Platelet Count 448 10^3/uL (150-450); Red Blood Count 5.06 10^6/uL (4.06-5.63); Red Cell Distribution Width 15.6 % (12-17); White Blood Count 8.7 10^3/uL (3.6-10.2)
[2023-05-26 07:45] LABS: Calcium 10.5 mg/dL (8.6-10.3); Creatinine, Serum 6.32 mg/dL (0.67-1.17); Magnesium 2.5 mg/dL (1.9-2.7); Potassium 4.5 mmol/L (3.5-5.0); eGFR CKD-EPI 10.5 (>60)
[2023-05-26] MEDS: Cholecalciferol (VIT D3) 1,000 unit TAB PO SCH (08:18)
[2023-05-26] MEDS: DOMPERIDONE 10 MG PO SCH (08:18)
== END 2023-05-26 09:20 | disposition home or self-care (01) | DRG 640 ==
LOC: ED 19:01 → EDHOLD 22:38 → SUATTDRO 22:38 → MED 23:15
PROVIDERS: ADMIT Student in an Organized Health Care Education/Training Program; ATTEND Internal Medicine

== ENCOUNTER 2023-05-26 20:52 | Inpatient (IN) ==
[2023-05-26 22:03] LABS: Venous Bicarbonate HCO3 25.4 mmol/L (24-28)
[2023-05-26 22:19] LABS: ABS Basophils 0.1 10^3/uL (0.0-0.1); ABS Lymphocytes 1.1 10^3/uL (1.0-4.8); ABS Monocytes 0.8 10^3/uL (0.0-1.1); ABS Neutrophils 12.5 10^3/uL (1.5-7.6); ABS Nucleated RBC 0.02 10^3/ul; Eosinophil % 0.2 %; Hematocrit 36.3 % (38-53); Hemoglobin 12.1 g/dL (13.2-16.3); Lymphocyte % 7.5 %; Mean Corpuscular Hemoglobin 26.7 pg (27-33); Mean Corpuscular Hgb Conc 33.3 g/dL (31-36); Mean Corpuscular Volume 80.3 fL (80-97); Mean Platelet Volume 8.7 fL (7.5-11.2); Nucleated Red Blood Cells % 0.1 %/100WBC (0.0-0.8); Platelet Count 447 10^3/uL (150-450); Red Blood Count 4.52 10^6/uL (4.06-5.63); Red Cell Distribution Width 15.7 % (12-17); White Blood Count 14.4 10^3/uL (3.6-10.2)
[2023-05-26] MEDS ORDERED: Ondansetron 4 mg VIAL 2 MG/ML 2 ml VIAL IV ONE (22:25)
[2023-05-26 22:28] LABS: ALT 12 U/L (7-52); Albumin 4.6 g/dL (3.2-5.2); Albumin/Globulin Ratio 1.2 (1-3); Alkaline Phosphatase 127 U/L (35-149); Anion Gap 15 mmol/L (2-16); Blood Urea Nitrogen 84 mg/dL (6-24); C Reactive Protein 11.49 mg/L (<8.01); CO2 Carbon Dioxide 25 mmol/L (22-32); Chloride 98 mmol/L (101-111); Creatinine, Serum 7.94 mg/dL (0.67-1.17); Globulin 3.8 g/dL (2-4); Glucose 205 mg/dL (70-100); Lipase 14 U/L (11.0-82.0); Sodium 138 mmol/L (135-145); Total Bilirubin 0.4 mg/dL (0.2-1.0); Total Protein 8.4 g/dL (6.4-8.9)
[2023-05-26] MEDS ORDERED: Iodixanol (CONTRAST) 320 MG/ML 100 ML SDV IV ONE (23:20)
[2023-05-27 03:34] LABS: Magnesium 2.6 mg/dL (1.9-2.7); Potassium Redraw 4.4 mmol/L (3.5-5.0)
[2023-05-27] MEDS ORDERED: Heparin DRIP 25,000 UNITS BAG 25,000 UNITS/250 ML BAG IV SCH (04:30)
[2023-05-27] MEDS ORDERED: Heparin 5000 UNITS/ML 1 mL VIAL IV SCH (05:00)
[2023-05-27] MEDS ORDERED: Insulin ASPART (NF) 1 UNIT SUBCUT SCH (06:00)
[2023-05-27 06:22] LABS: ABS Basophils 0.2 10^3/uL (0.0-0.1); ABS Eosinophils 0.1 10^3/uL (0.0-0.5); ABS Lymphocytes 2.2 10^3/uL (1.0-4.8); ABS Monocytes 0.9 10^3/uL (0.0-1.1); ABS Neutrophils 10.6 10^3/uL (1.5-7.6); ABS Nucleated RBC 0.01 10^3/ul; Eosinophil % 0.9 %; Hemoglobin 11.8 g/dL (13.2-16.3); Lymphocyte % 15.5 %; Mean Corpuscular Hgb Conc 32.7 g/dL (31-36); Mean Corpuscular Volume 79.4 fL (80-97); Mean Platelet Volume 8.6 fL (7.5-11.2); Nucleated Red Blood Cells % 0.1 %/100WBC (0.0-0.8); Platelet Count 430 10^3/uL (150-450); Red Blood Count 4.53 10^6/uL (4.06-5.63); Red Cell Distribution Width 15.5 % (12-17)
[2023-05-27 06:52] LABS: Creatinine, Serum 8.73 mg/dL (0.67-1.17); eGFR CKD-EPI 7.2 (>60)
[2023-05-27] MEDS: Ondansetron 4 mg VIAL 2 MG/ML 2 ml VIAL IV PRN ×3 (07:40→20:03)
[2023-05-27] MEDS ORDERED: LORazepam ORAL LIQ 2 MG/ML BULK BOTTLE SL ONE (10:21)
[2023-05-27] MEDS ORDERED: Iodixanol (CONTRAST) 320 MG/ML 100 ML SDV IV ONE (11:14)
[2023-05-27] MEDS ORDERED: Piperacillin/Tazobac 3.375 BAG 3.375 GM/100 ML BAG IV ONE (14:48)
[2023-05-27] MEDS ORDERED: Zosyn per Pharmacy NOTE FOLLOW UP SCH (15:00)
[2023-05-27] MEDS: ZOSYN 3.375 GM Q12H per EXTENDED INFUSION IV SCH (22:34)
[2023-05-28] MEDS: Ondansetron 4 mg VIAL 2 MG/ML 2 ml VIAL IV PRN ×2 (00:18→04:46)
[2023-05-28 06:17] LABS: ABS Basophils 0.1 10^3/uL (0.0-0.1); ABS Eosinophils 0.4 10^3/uL (0.0-0.5); ABS Lymphocytes 1.8 10^3/uL (1.0-4.8); ABS Monocytes 0.7 10^3/uL (0.0-1.1); ABS Neutrophils 7.1 10^3/uL (1.5-7.6); Eosinophil % 3.8 %; Hematocrit 31.5 % (38-53); Hemoglobin 10.4 g/dL (13.2-16.3); Lymphocyte % 17.5 %; Mean Corpuscular Hemoglobin 26.9 pg (27-33); Mean Corpuscular Hgb Conc 33.1 g/dL (31-36); Mean Corpuscular Volume 81.4 fL (80-97); Mean Platelet Volume 8.6 fL (7.5-11.2); Platelet Count 330 10^3/uL (150-450); Red Blood Count 3.87 10^6/uL (4.06-5.63); Red Cell Distribution Width 15.4 % (12-17)
[2023-05-28 06:33] LABS: Calcium 8.8 mg/dL (8.6-10.3); Creatinine, Serum 10.11 mg/dL (0.67-1.17); Magnesium 2.4 mg/dL (1.9-2.7); Potassium 4.8 mmol/L (3.5-5.0)
[2023-05-28 07:12] LABS: TSH Ultra Thyroid Stim Horm 1.48 mcIU/mL (0.34-5.60)
[2023-05-28] MEDS: Cholecalciferol (VIT D3) 1,000 unit TAB PO SCH (08:43)
[2023-05-28] MEDS: ZOSYN 3.375 GM Q12H per EXTENDED INFUSION IV SCH ×2 (08:43→20:44)
[2023-05-28] MEDS ORDERED: Heparin 1,000 UNIT/ML 10 ml (10,000 UNITS) CATHLAB/DIALYSIS DIALYSIS SCH (11:00)
[2023-05-28] MEDS ORDERED: BUMETANIDE 1 MG PO SCH (11:15)
[2023-05-28] MEDS: MAGNESIUM L THREONATE PO SCH (11:19)
[2023-05-28 17:47] LABS: Calcium 8.9 mg/dL (8.6-10.3); Creatinine, Serum 10.63 mg/dL (0.67-1.17); Potassium 5.6 mmol/L (3.5-5.0); eGFR CKD-EPI 5.7 (>60)
[2023-05-29] MEDS: Ondansetron 4 mg VIAL 2 MG/ML 2 ml VIAL IV PRN (03:35)
[2023-05-29 06:44] LABS: Calcium 8.8 mg/dL (8.6-10.3); Creatinine, Serum 11.44 mg/dL (0.67-1.17); Magnesium 2.6 mg/dL (1.9-2.7); Potassium 4.9 mmol/L (3.5-5.0); eGFR CKD-EPI 5.2 (>60)
[2023-05-29] MEDS: ZOSYN 3.375 GM Q12H per EXTENDED INFUSION IV SCH (09:51)
[2023-05-29] MEDS: Cholecalciferol (VIT D3) 1,000 unit TAB PO SCH (09:58)
[2023-05-29] MEDS: MAGNESIUM L THREONATE PO SCH (13:51)
[2023-05-29 13:54] VITALS: BP 148/80
== END 2023-05-29 14:45 | disposition home or self-care (01) | DRG 190 ==
LOC: ED 20:52 → EDHOLD 05-27 02:30 → SUATTDRO 05-27 02:30 → MEDTELE 05-27 14:14
PROVIDERS: ADMIT Internal Medicine; ATTEND Internal Medicine